=== PATIENT | female | born 1945 | race Caucasian/White ===

== ENCOUNTER 2017-12-23 15:46 | Inpatient (IN) | payer OTHER ==
--- NOTE | 2017-12-23 16:54 | PDOC ---
History of Present Illness <Katarzyna Haywood - Last Filed: 12/23/17 16:53> - General History Source: Patient, [facility] Exam Limitations: No Limitations - History of Present Illness Initial Comments: 12/23/17 18:10 The patient is a 72 year old female with past medical history of HTN, insomnia, Alzheimers disease, and HLD presents to the emergency department from [facility] s/ a fall earlier in the afternoon. The patient is a poor historian. The patient states she fell from he bed, when she rolled over. The patient denies loss of conscious or pain. The patients documents show the patient has an history of HTN, but the patient states she has a baseline of low blood pressure . The patients reports show, the patient was sent to the ED by Dr. Tam primarily for refusing to eat, 2nd hemorrhoid size of a fist and other conditions of generalized weakness and dizziness. Allergies: Penicillins Social history: None reported Surgical history: None reported PCP: Dr. Bee Tam <Telma Fernandes - Last Filed: 12/23/17 18:19> - General Chief Complaint: Weakness Stated Complaint: AMS Time Seen by Provider: 12/23/17 16:42 Past History - Past Medical History Cardiac Disorders: Yes (ashd) COPD: No HTN: Yes Hypercholesterolemia: Yes - Suicide/Smoking/Psychosocial Hx Smoking History: Unknown if ever smoked Have you smoked in the past 12 months: No Information on smoking cessation initiated: No Hx Alcohol Use: No Drug/Substance Use Hx: No Substance Use Type: None <Katarzyna Haywood - Last Filed: 12/23/17 16:53> <Telma Fernandes - Last Filed: 12/23/17 18:19> - Past Medical History Allergies/Adverse Reactions: Allergies Allergy/AdvReac Type Severity Reaction Status Date / Time Penicillins Allergy Verified 12/23/17 16:03 Review of Systems - Review of Systems Able to Perform ROS?: Yes Comments:: 12/23/17 18:11 GENERAL/CONSTITUTIONAL: No fever or chills. No weakness. HEAD, EYES, EARS, NOSE AND THROAT: No change in vision. No ear pain or discharge. No sore throat. CARDIOVASCULAR: No chest pain or shortness of breath. RESPIRATORY: No cough, wheezing, or hemoptysis. GASTROINTESTINAL: No nausea, vomiting, diarrhea or constipation. GENITOURINARY: No dysuria, frequency, or change in urination. MUSCULOSKELETAL: No joint or muscle swelling or pain. No neck or back pain. SKIN: No rash NEUROLOGIC: No headache, vertigo, loss of consciousness, or change in strength/ sensation. ENDOCRINE: No increased thirst. No abnormal weight change. HEMATOLOGIC/LYMPHATIC: No anemia, easy bleeding, or history of blood clots. ALLERGIC/IMMUNOLOGIC: No hives or skin allergy. <Telma Fernandes - Last Filed: 12/23/17 18:19> *Physical Exam - Vital Signs Last Vital Signs Temp Pulse Resp BP Pulse Ox 98.5 F 75 20 82/50 96 12/23/17 16:06 12/23/17 16:06 12/23/17 16:06 12/23/17 16:06 12/23/17 16:06 <Katarzyna Haywood - Last Filed: 12/23/17 16:53> - Vital Signs Last Vital Signs Temp Pulse Resp BP Pulse Ox 98.5 F 82 18 88/73 96 12/23/17 16:06 12/23/17 18:00 12/23/17 18:00 12/23/17 18:00 12/23/17 16:06 - Physical Exam Comments: 12/23/17 18:11 GENERAL: Awake, alert, and fully oriented, in no acute distress HEAD: No signs of trauma EYES: PERRLA, EOMI, sclera anicteric, conjunctiva clear ENT: Auricles normal inspection, hearing grossly normal, nares patent, oropharynx clear without exudates. Moist mucosa NECK: Normal ROM, supple, no lymphadenopathy, JVD, or masses LUNGS: Breath sounds equal, clear to auscultation bilaterally. No wheezes, and no crackles HEART: Regular rate and rhythm, normal S1 and S2, no murmurs, rubs or gallops ABDOMEN: Soft, nontender, normoactive bowel sounds. No guarding, no rebound. No masses RECTAL Exam: (+) hemorrhoid. EXTREMITIES: Normal range of motion, no edema. No clubbing or cyanosis. No cords, erythema, or tenderness NEUROLOGICAL: Cranial nerves II through XII grossly intact. Normal speech, normal gait SKIN: Warm, Dry, normal turgor, no rashes or lesions noted. 12/23/17 18:19 <Telma Fernandes - Last Filed: 12/23/17 18:19> ED Treatment Course - LABORATORY CBC & Chemistry Diagram: 12/23/17 17:33 12/23/17 17:33 <Telma Fernandes - Last Filed: 12/23/17 18:19> *DC/Admit/Observation/Transfer <Katarzyna Haywood - Last Filed: 12/23/17 16:53> - Attestations Scribe Attestion: 12/23/17 18:12 Documentation prepared by Telma Fernandes, acting as medical receptionist for Katarzyna Haywood MD. <Telma Fernandes - Last Filed: 12/23/17 18:19> - Referrals Referrals: Dhruv Tam [Primary Care Provider] - - Patient Instructions - Post Discharge Activity
[2017-12-23] MEDS ORDERED: SODIUM CHLORIDE 0.9% 500 ML INFUS.BAG IV ONE (18:03)
[2017-12-23 18:06] LABS: BASO % 0.6 % (0-2.0); EOS % 0.9 % (0-4.5); HEMATOCRIT 33.5 % (32.4-45.2); HEMOGLOBIN 10.8 GM/dL (10.7-15.3); LYMPH % 11.8 % (8-40); MCHC 32.3 g/dl (32.0-36.0); MEAN CELL VOLUME 83.6 fl (80-96); MEAN PLT VOLUME 9.5 fl (7.5-11.1); MONO % 5.2 % (3.8-10.2); NEUT % 81.5 % (42.8-82.8); PLATELET COUNT 209 K/MM3 (134-434); RBC 4.01 M/mm3 (3.60-5.2); RDW 20.3 % (11.6-15.6); WHITE BLOOD COUNT 5.6 K/mm3 (4.0-10.0)
[2017-12-23 18:28] LABS: INR 0.97 (0.82-1.09)
[2017-12-23 18:31] LABS: ACTIVATED PTT 28.2 SECONDS (25.2-36.5)
[2017-12-23 18:44] LABS: ANION GAP 7 (8-16); BLOOD UREA NITROGEN 39 mg/dL (7-18); CHLORIDE 106 mmol/L (98-107); CO2 34 mmol/L (21-32); GLUCOSE,RANDOM 128 mg/dL (74-106); SODIUM 147 mmol/L (136-145)
[2017-12-23 19:11] LABS: ALK PHOS 126 U/L (45-117); BILIRUBIN,TOTAL 0.2 mg/dL (0.2-1.0); CREATININE 1.2 mg/dL (0.55-1.02); SGPT/ALT 265 U/L (12-78); TOT PROT 4.2 g/dl (6.4-8.2)
--- NOTE | 2017-12-23 19:19 | PDOC ---
*Physical Exam - Vital Signs Last Vital Signs Temp Pulse Resp BP Pulse Ox 99.5 F 82 18 115/59 96 12/23/17 18:30 12/23/17 18:37 12/23/17 18:00 12/23/17 18:37 12/23/17 16:06 - Physical Exam Comments: GENERAL: Awake, alert, in no acute distress HEAD: No signs of trauma, normocephalic, atraumatic EYES: PERRLA, EOMI, sclera anicteric, conjunctiva clear ENT: Auricles normal inspection, hearing grossly normal, nares patent, oropharynx clear without exudates. Moist mucosa NECK: Normal ROM, supple, no lymphadenopathy, JVD, or masses LUNGS: No distress, speaks full sentences, clear to auscultation bilaterally HEART: Regular rate and rhythm, normal S1 and S2, no murmurs, rubs or gallops, peripheral pulses normal and equal bilaterally. EXTREMITIES: Normal inspection, Normal range of motion, no edema. No clubbing or cyanosis. NEUROLOGICAL: Cranial nerves II through XII grossly intact. Normal speech, normal gait, no focal sensorimotor deficits SKIN: Warm, Dry, normal turgor, no rashes or lesions noted. ED Treatment Course - LABORATORY CBC & Chemistry Diagram: 12/23/17 17:33 12/23/17 17:33 - ADDITIONAL ORDERS Additional order review: Laboratory Results 12/23/17 12/23/17 17:33 17:33 PT with INR 11.00 INR 0.97 PTT (Actin FS) 28.2 Lactic Acid 2.5 H* 12/23/17 17:33 RBC 4.01 MCV 83.6 MCHC 32.3 RDW 20.3 H MPV 9.5 Neutrophils % 81.5 Lymphocytes % 11.8 Monocytes % 5.2 Eosinophils % 0.9 Basophils % 0.6 - Medications Given in the ED: ED Medications Discontinued Medications Generic Name Dose Route Start Last Admin Trade Name Freq PRN Reason Stop Dose Admin Sodium Chloride 1,000 ml 12/23/17 18:03 12/23/17 18:20 Normal Saline - IV 12/23/17 18:04 1,000 ml ONCE ONE Administration Medical Decision Making - Medical Decision Making 12/23/17 20:[address] Haywood. Patient is a 72 year old female with past medical history of HTN, insomnia, Alzheimers disease, and HLD presents to the emergency department from [facility] s/p a fall. EKG shows prolonged QTc, no signs of ischemia. Labs pending. 12/23/17 20:27 Laboratory Tests 12/23/17 12/23/17 17:33 17:33 Sodium 147 H Potassium 3.0 L BUN 39 H Creatinine 1.2 H Lactic Acid 2.5 H* Calcium 6.7 L* AST 512 H ALT 265 H Creatine Kinase 7230 H Troponin I 0.37 H Total Protein 4.2 L Albumin 0.9 L CMP shows hypokalemia, elevated BUN/Cr, lactic acid 2.5. Liver enzymes elevated. CK elevated to 7k, troponin elevated to 0.37. Patient reassessed, complains of no chest pain or shortness of breath. 1L fluid started, CXR and UA ordered. Aspirin given. Dr Isaias ugalde from cardiology. Discussed patient, agrees with plan. *DC/Admit/Observation/Transfer Diagnosis at time of Disposition: Troponin I above reference range - Discharge Dispostion Condition at time of disposition: Stable Decision to Admit order: Yes - Referrals - Patient Instructions - Post Discharge Activity
[2017-12-23 19:43] LABS: ALBUMIN 0.9 g/dl (3.4-5.0); SGOT/AST 512 U/L (15-37)
[2017-12-23 19:44] LABS: CALCIUM 6.7 mg/dL (8.5-10.1)
[2017-12-23] MEDS ORDERED: SODIUM CHLORIDE 1,000 ML IV STA (19:53)
[2017-12-23] MEDS ORDERED: ASPIRIN 81 MG CHEWABLE TABLETS PO ONE (20:21)
[2017-12-23] MEDS ORDERED: ASPIRIN 81 MG CHEWABLE TABLETS ONE (20:44)
--- NOTE | 2017-12-23 22:39 | PN ---
Teaching Attending Note Name of Resident: Srinivas Salamanca ATTENDING PHYSICIAN STATEMENT I saw and evaluated the patient. I reviewed the resident's note and discussed the case with the resident. I agree with the resident's findings and plan as documented. SUBJECTIVE: Patient is a 72 year old woman from [facility] with past medical history of HTN , insomnia, Alzheimers disease, and HLD who presents to the ER after a fall earlier in the afternoon. The patient is a poor historian. The patient states she fell from he bed, when she rolled over. The patient denies loss of conscious or pain. The patients documents show the patient has HTN, but the she states that she has a baseline of low blood pressure. The patients reports show, the patient was sent to the ED by Dr. Tam primarily for refusing to eat, 2nd hemorrhoid size of a fist and other conditions of generalized weakness and dizziness. OBJECTIVE: Alert and in no acute distress. Vital Signs Period Temp Pulse Resp BP Sys/Chatterjee Pulse Ox Last 24 Hr 98.5 F-99.5 F 75-82 18-20 82-115/50-73 96 HEENT: No Jaundice, eye redness or discharge, PERRLA, EOMI. Normocephalic, atraumatic. External ears are normal and hearing is grossly intact. No nasal discharge. Neck: Supple, nontender. No palpable adenopathy or thyromegaly. No JVD Chest: Good effort. Clear to auscultation and percussion. Heart: Regular. No S3, rub or murmur Abdomen: Not distended, soft, nontender and no HSM. No rebound or guarding. Normoactive bowel sounds. Ext: No obvious superficial physical sequelae of fall. Peripheral pulses intact. No leg edema. Skin: Warm and dry. No petechiae, rash or ecchymosis. Neuro: Alert. Oriented to person and place. CN 2-12 grossly intact. Sensation grossly intact in all four extremities and DTR are symmetric. Home Medications Medication Instructions Recorded Amlodipine Besylate [Norvasc -] 5 mg PO DAILY 12/23/17 Aspirin 81 mg PO DAILY 12/23/17 Atorvastatin Ca [Lipitor] 80 mg PO HS 12/23/17 Docusate Sodium [Colace] 100 mg PO HS 12/23/17 Levofloxacin [Levaquin] 500 mg PO DAILY 12/23/17 Lisinopril [Prinivil] 20 mg PO BID 12/23/17 Melatonin/Pyridoxine HCl (B6) 3 each PO HS 12/23/17 [Melatonin 3 mg Tablet] Memantine HCl [Namenda -] 5 mg PO DAILY 12/23/17 hydrALAZINE HCL [Apresoline -] 25 mg PO TID 12/23/17 Abnormal Lab Results 12/23/17 12/23/17 12/23/17 17:33 17:33 17:33 RDW 20.3 H Sodium 147 H Potassium 3.0 L Carbon Dioxide 34 H Anion Gap 7 L BUN 39 H Creatinine 1.2 H Random Glucose 128 H Lactic Acid 2.5 H* Calcium 6.7 L* AST 512 H ALT 265 H Alkaline Phosphatase 126 H Creatine Kinase 7230 H CK-MB (CK-2) 51.69 H Troponin I 0.37 H Total Protein 4.2 L Albumin 0.9 L ASSESSMENT AND PLAN: 1. Rhabdomyolysis after Fall - Head CT does not show any acute pathology and her EKG shows no significant abnormality. She does not recall how long she was on the floor after the fall. Curiously does not have any muscle or limb tenderness. Low calcium, lactic acidosis and low albumin all as well as MOSHE all likely due to rhabdomyolysis. Got 2 liters of NS in the ER. Will continue gentle IV fluids and monitor kidney function and CPK as wel as lactic acid level. There is no evidence of infection. Will check, Mg, phosphate, repeat albumin level and treat with KCL IV and PO. Will hold lipitor and lisinopril. 2. Elevated troponin - .Likely due to demand ischemia, but will onitor her on telemetry and rule out ACS. Her EKG shows no significant abnormality. Cardiology consult. 3. DVT prophylaxis - Heparin 5000u sq tid. 4. Advance directives - Full code
[2017-12-23 22:45] LABS: URINE APPEARANCE SLCLOUDY; URINE BILIRUBIN NEGATIVE (<2.0 mg/dL); URINE COLOR AMBER; URINE GLUCOSE (UA) NEGATIVE (NEGATIVE); URINE KETONE NEGATIVE (NEGATIVE); URINE LEUK ESTERASE TRACE (NEGATIVE); URINE NITRITE NEGATIVE (NEGATIVE); URINE UROBILINOGEN 4.0 E.U/dl mg/dL (0.2-1.0)
[2017-12-23 22:59] LABS: URINE PROTEIN 3+ (NEGATIVE)
[2017-12-23 23:04] LABS: EPI CELLS RARE /HPF (FEW); URINE BACTERIA RARE /hpf (NONE SEEN); URINE HYALINE CAST 1 /lpf; URINE MUCUS RARE
[2017-12-24] MEDS: SODIUM CHLORIDE 1,000 ML IV SCH ×2 (01:01→23:25)
[2017-12-24] MEDS ORDERED: POTASSIUM CHLORIDE TABS 20 MEQ TABLET.ER (FP) PO ONE ×2 (03:54→04:10)
[2017-12-24] MEDS: KCL 10 MEQ IVPB 10 MEQ/100 ML INFUS.BAG IVPB SCH ×3 (04:05→06:30)
[2017-12-24] MEDS ORDERED: KCL 10 MEQ IVPB 20 MEQ/200 ML INFUS.BAG IVPB ONE (04:11)
--- NOTE | 2017-12-24 04:23 | HP ---
CHIEF COMPLAINT: s/p fall PCP: Dr. Tam HISTORY OF PRESENT ILLNESS: The patient is a poor historian. the following history was obtained from the medical record. The patient is a 72 yo f w/ PMH Alzheimer's dementia, HLD, HTN who comes into the ED s/p fall earlier today. The patient has difficulty remembering the circumstances around the fall or how long she was on the floor for. The patient denies LOC, head trauma, palpitations, chest pain, SOB, dizziness or pain. Per Dr. Tam, the patient has also been "refusing to eat" and has a "hemorrhoid the size of a fist." ER course was notable for: (1) sodium 147, potassium 3.0, BUN 39, Cr 1.2 (2) lactic acid 2.5, troponin .37 (3) AST 512, alt 265, alp 126, CL 7250 (4) Dr. Esparza consulted from ED for troponemia; likley demand. recommended ASA and hydration. PAST MEDICAL HISTORY: HTN, Alzheimer's, HLD PAST SURGICAL HISTORY: none Social History: Smoking: denies Alcohol: denies Drugs: denies Allergies Penicillins Allergy (Verified 12/23/17 16:03) HOME MEDICATIONS: Home Medications Medication Instructions Recorded Amlodipine Besylate [Norvasc -] 5 mg PO DAILY 12/23/17 Aspirin 81 mg PO DAILY 12/23/17 Atorvastatin Ca [Lipitor] 80 mg PO HS 12/23/17 Docusate Sodium [Colace] 100 mg PO HS 12/23/17 Levofloxacin [Levaquin] 500 mg PO DAILY 12/23/17 Lisinopril [Prinivil] 20 mg PO BID 12/23/17 Melatonin/Pyridoxine HCl (B6) 3 each PO HS 12/23/17 [Melatonin 3 mg Tablet] Memantine HCl [Namenda -] 5 mg PO DAILY 12/23/17 hydrALAZINE HCL [Apresoline -] 25 mg PO TID 12/23/17 REVIEW OF SYSTEMS CONSTITUTIONAL: Absent: fever, chills, diaphoresis, generalized weakness, malaise, loss of appetite, weight change HEENT: Absent: rhinorrhea, nasal congestion, throat pain, throat swelling, difficulty swallowing, mouth swelling, ear pain, eye pain, visual changes CARDIOVASCULAR: Absent: chest pain, syncope, palpitations, irregular heart rate, lightheadedness , peripheral edema RESPIRATORY: Absent: cough, shortness of breath, dyspnea with exertion, orthopnea, wheezing, stridor, hemoptysis GASTROINTESTINAL: Absent: abdominal pain, abdominal distension, nausea, vomiting, diarrhea, constipation, melena, hematochezia GENITOURINARY: Absent: dysuria, frequency, urgency, hesitancy, hematuria, flank pain, genital pain MUSCULOSKELETAL: Absent: myalgia, arthralgia, joint swelling, back pain, neck pain SKIN: Absent: rash, itching, pallor HEMATOLOGIC/IMMUNOLOGIC: Absent: easy bleeding, easy bruising, lymphadenopathy, frequent infections ENDOCRINE: Absent: unexplained weight gain, unexplained weight loss, heat intolerance, cold intolerance NEUROLOGIC: Absent: headache, focal weakness or paresthesias, dizziness, unsteady gait, seizure, mental status changes, bladder or bowel incontinence PSYCHIATRIC: Absent: anxiety, depression, suicidal or homicidal ideation, hallucinations. PHYSICAL EXAMINATION Vital Signs - 24 hr 12/23/17 12/23/17 12/23/17 16:06 18:00 18:30 Temperature 98.5 F 99.5 F Pulse Rate 75 Pulse Rate [ 82 Left] Respiratory 20 18 Rate Blood Pressure 82/50 Blood Pressure 88/73 [Left Arm] O2 Sat by Pulse 96 Oximetry (%) 12/23/17 18:37 Temperature Pulse Rate Pulse Rate [ 82 Left] Respiratory Rate Blood Pressure Blood Pressure 115/59 [Left Arm] O2 Sat by Pulse Oximetry (%) GENERAL: Awake, alert, oriented to self only, in no acute distress. HEAD: Normal with no signs of trauma. EYES: Pupils equal, round and reactive to light, extraocular movements intact, sclera anicteric, conjunctiva clear. No lid lag. EARS, NOSE, THROAT: oropharynx clear without exudates. Moist mucous membranes. NECK: Normal range of motion, supple without lymphadenopathy, JVD, or masses. LUNGS: Breath sounds equal, clear to auscultation bilaterally. No wheezes, and no crackles. No accessory muscle use. HEART: Regular rate and rhythm, normal S1 and S2 without murmur, rub or gallop. ABDOMEN: Soft, nontender, not distended, normoactive bowel sounds, no guarding, no rebound, no masses. No hepatomegaly or splenomegaly. MUSCULOSKELETAL: Normal range of motion at all joints. No bony deformities or tenderness. No CVA tenderness. UPPER EXTREMITIES: 2+ pulses, warm, well-perfused. No cyanosis. No clubbing. No peripheral edema. LOWER EXTREMITIES: 2+ pulses, warm, well-perfused. No calf tenderness. No peripheral edema. NEUROLOGICAL: Cranial nerves II-X intact. Normal speech. strength 5/5 in both upper extremities. 2/5 strength in both lower extremities SKIN: Warm, dry, normal turgor, no rashes or lesions noted, normal capillary refill. Rectal: small external hemorrhoid seen. No erythema or bleeding stigmata. Laboratory Results - last 24 hr 12/23/17 12/23/17 12/23/17 17:33 17:33 17:33 WBC 5.6 RBC 4.01 Hgb 10.8 Hct 33.5 MCV 83.6 MCH 27.0 MCHC 32.3 RDW 20.3 H Plt Count 209 MPV 9.5 Absolute Neuts (auto) 4.6 Neutrophils % 81.5 Lymphocytes % 11.8 Monocytes % 5.2 Eosinophils % 0.9 Basophils % 0.6 Nucleated RBC % 0 PT with INR INR PTT (Actin FS) Sodium 147 H Potassium 3.0 L Chloride 106 Carbon Dioxide 34 H Anion Gap 7 L BUN 39 H Creatinine 1.2 H Creat Clearance w eGFR 43.91 Random Glucose 128 H Lactic Acid 2.5 H* Calcium 6.7 L* Total Bilirubin 0.2 AST 512 H ALT 265 H Alkaline Phosphatase 126 H Creatine Kinase 7230 H Creatine Kinase Index 0.7 CK-MB (CK-2) 51.69 H Troponin I 0.37 H Total Protein 4.2 L Albumin 0.9 L Urine Color Urine Appearance Urine pH Ur Specific Loyal Urine Protein Urine Glucose (UA) Urine Ketones Urine Blood Urine Nitrite Urine Bilirubin Urine Urobilinogen Ur Leukocyte Esterase Urine WBC (Auto) Urine RBC (Auto) Ur Epithelial Cells Urine Bacteria Hyaline Casts Urine Mucus 12/23/17 12/23/17 12/23/17 17:33 22:20 22:40 WBC RBC Hgb Hct MCV MCH MCHC RDW Plt Count MPV Absolute Neuts (auto) Neutrophils % Lymphocytes % Monocytes % Eosinophils % Basophils % Nucleated RBC % PT with INR 11.00 INR 0.97 PTT (Actin FS) 28.2 Sodium Potassium Chloride Carbon Dioxide Anion Gap BUN Creatinine Creat Clearance w eGFR Random Glucose Lactic Acid 1.4 Calcium Total Bilirubin AST ALT Alkaline Phosphatase Creatine Kinase Creatine Kinase Index CK-MB (CK-2) Troponin I Total Protein Albumin Urine Color Jessica Urine Appearance Slcloudy Urine pH 6.0 Ur Specific Loyal 1.019 Urine Protein 3+ H Urine Glucose (UA) Negative Urine Ketones Negative Urine Blood 3+ H Urine Nitrite Negative Urine Bilirubin Negative Urine Urobilinogen 4.0 e.u/dl H Ur Leukocyte Esterase Trace Urine WBC (Auto) 39 Urine RBC (Auto) 3 Ur Epithelial Cells Rare Urine Bacteria Rare Hyaline Casts 1 Urine Mucus Rare ASSESSMENT/PLAN: The patient is a 72 yo f w/ PMH HTN, Alzheimer's, HLD who was sent to the ED from [facility] term s/p fall. Patient found to have rhabdomyolysis in the ED. #Rhabdomyolysis likely secondary to prolonged immobility after fall -NS @42 -rpt CPK in am -rpt lactic acid normalized -replete potassium IV and PO #troponemia -likely demand as per cardio -cardio consult in AM -Rpt EKG in AM -trend trop #MOSHE likely 2/2 rhabdo -creatinine 1.2, b/l unknown -trend Cr. -IVF -obtain UA #elevated LFTs and hypoalbuminemia likely 2/2 rhabdo -trend LFTs -rpt albumin #FEN -NS @ 42 -replete lytes as above and monitor -sodium controlled diet #prophy -heparin SQ 5k units TID #Dispo -admit tele Visit type - Emergency Visit Emergency Visit: Yes ED Registration Date: 12/23/17 Care time: The patient presented to the Emergency Department on the above date and was hospitalized for further evaluation of their emergent condition. - New Patient This patient is new to me today: Yes Date on this admission: 12/24/17 - Critical Care Critical Care patient: No Hospitalist Screening - Colonoscopy Questionnaire Colonoscopy Questionnaire: Colonoscopy Questionnaire - Patient: 50 - 75 years old and never had a screening colonoscopy: Unknown History of colon or rectal polyps, or CA: Unknown History of IBD, Crohn's disease or UC: Unknown History of abdominal radiation therapy as a child: Unknown - Relative: 1 with colon or rectal CA, or polyps at age 60 or younger: Unknown Colon or rectal CA diagnosed at age 45 or younger: Unknown Multiple relatives with colon or rectal CA: Unknown - Outcome: Screening Result: Negative Screen
[2017-12-24] MEDS: hydrALAZINE HCL 25 MG TABLET (FP) PO SCH ×3 (06:30→22:35)
[2017-12-24] MEDS ORDERED: hydrALAZINE HCL 25 MG TABLET (FP) ONE (06:37)
[2017-12-24] MEDS ORDERED: HEPARIN NA (PORCINE) 5,000 UNITS/ML 1ML VIAL ONE (06:38)
[2017-12-24] MEDS ORDERED: KCL 10 MEQ IVPB 10 MEQ/100 ML INFUS.BAG IVPB ONE (06:48)
[2017-12-24] MEDS: HEPARIN NA (PORCINE) 5,000 UNITS/ML 1ML VIAL SQ SCH ×3 (06:50→22:35)
[2017-12-24 07:20] LABS: BASO % 0.5 % (0-2.0); EOS % 0.9 % (0-4.5); HEMATOCRIT 32.3 % (32.4-45.2); HEMOGLOBIN 10.7 GM/dL (10.7-15.3); LYMPH % 14.4 % (8-40); MCH 27.7 pg (25.7-33.7); MCHC 33.1 g/dl (32.0-36.0); MEAN CELL VOLUME 83.8 fl (80-96); MEAN PLT VOLUME 9.3 fl (7.5-11.1); MONO % 5.1 % (3.8-10.2); NEUT % 79.1 % (42.8-82.8); PLATELET COUNT 176 K/MM3 (134-434); RBC 3.86 M/mm3 (3.60-5.2); RDW 20.2 % (11.6-15.6); WHITE BLOOD COUNT 6.8 K/mm3 (4.0-10.0)
--- NOTE | 2017-12-24 08:52 | EKG ---
Test Reason : Blood Pressure : / mmHG Vent. Rate : 078 BPM Atrial Rate : 078 BPM P-R Int : 158 ms QRS Dur : 066 ms QT Int : 442 ms P-R-T Axes : 042 -09 -07 degrees QTc Int : 503 ms SINUS RHYTHM WITH PREMATURE ATRIAL COMPLEXES PROLONGED QT NONSPECIFIC ST ABNORMALITY NO PREVIOUS ECGS AVAILABLE Confirmed by TEOFILO CHRISTINE MD ([id number]) on 12/24/2017 8:52:03 AM Referred By: Confirmed By:TEOFILO CHRISTINE MD
[2017-12-24] MEDS: MEMANTINE HCL 5 MG TABLET (UD) PO SCH (09:52)
[2017-12-24] MEDS: amLODIPine BESYLATE 5 MG TABLET (FP) PO SCH (09:52)
[2017-12-24] MEDS ORDERED: amLODIPine BESYLATE 5 MG TABLET (FP) ONE (09:53)
[2017-12-24] MEDS ORDERED: PT OWN MED DRAWER 7, Y5N ONE ×2 (09:54→12:22)
--- NOTE | 2017-12-24 11:26 | PN ---
Progress Note (short form) - Note Progress Note: patient admitted for s/p fall Problem List - Problems (1) Troponin I above reference range Assessment/Plan: trend troponins likely due to increase demand cardiology aspirin ivf Code(s): R74.8 - ABNORMAL LEVELS OF OTHER SERUM ENZYMES (2) Rhabdomyolysis Assessment/Plan: ivf trend CPK lactic now trending down Code(s): M62.82 - RHABDOMYOLYSIS (3) Hypokalemia Assessment/Plan: repleted awaiting new potassium check magnesium Code(s): E87.6 - HYPOKALEMIA (4) Dementia Assessment/Plan: namenda Code(s): F03.90 - UNSPECIFIED DEMENTIA WITHOUT BEHAVIORAL DISTURBANCE
--- NOTE | 2017-12-24 11:31 | PN ---
Progress Note, Physician Chief Complaint: patient admitted s/p fall - Current Medication List Current Medications: Active Medications Amlodipine Besylate (Norvasc -) 5 mg PO DAILY [facility] Last Admin: 12/24/17 09:52 Dose: 5 mg Aspirin (Asa -) 81 mg PO DAILY [facility] Docusate Sodium (Colace -) 100 mg PO HS [facility] Heparin Sodium (Porcine) (Heparin -) 5,000 unit SQ TID [facility] Last Admin: 12/24/17 06:50 Dose: 5,000 unit Hydralazine HCl (Apresoline -) 25 mg PO TID [facility] Last Admin: 12/24/17 06:30 Dose: 25 mg Sodium Chloride (Normal Saline -) 1,000 mls @ 42 mls/hr IV ASDIR [facility] Last Admin: 12/24/17 01:01 Dose: 42 mls/hr Memantine (Namenda -) 5 mg PO DAILY [facility] Last Admin: 12/24/17 09:52 Dose: 5 mg - Objective Vital Signs: Vital Signs Temperature 98 F 12/24/17 10:00 Pulse Rate 82 12/24/17 10:00 Respiratory Rate 20 12/24/17 11:00 Blood Pressure 126/66 12/24/17 10:00 O2 Sat by Pulse Oximetry (%) 97 12/24/17 11:00 Constitutional: Yes: Calm, Thin Neck: Yes: Trachea Midline Cardiovascular: Yes: Regular Rate and Rhythm, S1, S2 Respiratory: Yes: CTA Bilaterally Gastrointestinal: Yes: Normal Bowel Sounds, Soft Edema: No Neurological: Yes: Alert, Oriented Labs: CBC, BMP 12/24/17 06:20 INR, PTT INR 0.97 (0.82-1.09) 12/23/17 17:33 Problem List - Problems (1) Status post fall Assessment/Plan: carotid dopppler PT eval cardiology neurology neuro check Code(s): Z91.81 - HISTORY OF FALLING (2) Troponin I above reference range Assessment/Plan: trend troponins likely due to increase demand cardiology aspirin ivf Code(s): R74.8 - ABNORMAL LEVELS OF OTHER SERUM ENZYMES (3) Rhabdomyolysis Assessment/Plan: ivf trend CPK lactic now trending down Code(s): M62.82 - RHABDOMYOLYSIS (4) Hypokalemia Assessment/Plan: repleted awaiting new potassium check magnesium Code(s): E87.6 - HYPOKALEMIA (5) Dementia Assessment/Plan: namenda Code(s): F03.90 - UNSPECIFIED DEMENTIA WITHOUT BEHAVIORAL DISTURBANCE
[2017-12-24 11:41] LABS: ANION GAP 9 (8-16); BLOOD UREA NITROGEN 40 mg/dL (7-18); CHLORIDE 114 mmol/L (98-107); CO2 27 mmol/L (21-32); CREATININE 1.3 mg/dL (0.55-1.02); GLUCOSE,RANDOM 73 mg/dL (74-106); POTASSIUM 3.9 mmol/L (3.5-5.1); SGPT/ALT 286 U/L (12-78); SODIUM 150 mmol/L (136-145)
--- NOTE | 2017-12-24 11:50 | CON.CARD ---
Cardiology Consult (text) - Consultation Consultation Note: cc: fall hpi: 72 f hx htn, dementia, [place]. Pt does not recall events , does not think she had prodrome sxs or loc. Feels well now. No cp, sob, palps, dizzy, pnd, orthopnea, le edema. pmh: per hpi psh: nc fam: no premature cad social: no tob ros: per hpi; no nvd, cough, fever, vargas, abd pain, muscle pain, gib hematuria, dysuria meds: Ambulatory Orders Amlodipine Besylate [Norvasc -] 5 mg PO DAILY 12/23/17 Aspirin 81 mg PO DAILY 12/23/17 Atorvastatin Ca [Lipitor] 80 mg PO HS 12/23/17 Docusate Sodium [Colace] 100 mg PO HS 12/23/17 Levofloxacin [Levaquin] 500 mg PO DAILY 12/23/17 Lisinopril [Prinivil] 20 mg PO BID 12/23/17 Melatonin/Pyridoxine HCl (B6) [Melatonin 3 mg Tablet] 3 each PO HS 12/23/17 Memantine HCl [Namenda -] 5 mg PO DAILY 12/23/17 hydrALAZINE HCL [Apresoline -] 25 mg PO TID 12/23/17 pe: Vital Signs Period Temp Pulse Resp BP Sys/Chatterjee Pulse Ox Last 24 Hr 98 F-99.5 F 75-82 18-22 82-139/50-76 96-97 nad no jvd rrr s1s2 no mrg no le e/c/c abd nt nd pos bs cta bl nl eff awake alert appropriate no jaundice diaphoresis pos dp pt no carotid bruits Laboratory Last Values WBC 6.8 K/mm3 (4.0-10.0) 12/24/17 06:20 RBC 3.86 M/mm3 (3.60-5.2) 12/24/17 06:20 Hgb 10.7 GM/dL (10.7-15.3) 12/24/17 06:20 Hct 32.3 % (32.4-45.2) L 12/24/17 06:20 MCV 83.8 fl (80-96) 12/24/17 06:20 MCH 27.7 pg (25.7-33.7) 12/24/17 06:20 MCHC 33.1 g/dl (32.0-36.0) 12/24/17 06:20 RDW 20.2 % (11.6-15.6) H 12/24/17 06:20 Plt Count 176 K/MM3 (134-434) 12/24/17 06:20 MPV 9.3 fl (7.5-11.1) 12/24/17 06:20 Absolute Neuts (auto) 5.4 # 12/24/17 06:20 Neutrophils % 79.1 % (42.8-82.8) 12/24/17 06:20 Lymphocytes % 14.4 % (8-40) D 12/24/17 06:20 Monocytes % 5.1 % (3.8-10.2) 12/24/17 06:20 Eosinophils % 0.9 % (0-4.5) 12/24/17 06:20 Basophils % 0.5 % (0-2.0) 12/24/17 06:20 Nucleated RBC % 0 % (0-0) 12/24/17 06:20 PT with INR 11.00 SEC (9.7-13.0) 12/23/17 17:33 INR 0.97 (0.82-1.09) 12/23/17 17:33 PTT (Actin FS) 28.2 SECONDS (25.2-36.5) 12/23/17 17:33 Sodium 147 mmol/L (136-145) H 12/23/17 17:33 Potassium 3.0 mmol/L (3.5-5.1) L 12/23/17 17:33 Chloride 106 mmol/L (98-107) 12/23/17 17:33 Carbon Dioxide 34 mmol/L (21-32) H 12/23/17 17:33 Anion Gap 7 (8-16) L 12/23/17 17:33 BUN 39 mg/dL (7-18) H 12/23/17 17:33 Creatinine 1.2 mg/dL (0.55-1.02) H 12/23/17 17:33 Creat Clearance w eGFR 43.91 (>60) 12/23/17 17:33 Random Glucose 128 mg/dL (74-106) H 12/23/17 17:33 Lactic Acid 1.4 mmol/L (0.0-2.0) 12/23/17 22:40 Calcium 6.7 mg/dL (8.5-10.1) L* 12/23/17 17:33 Total Bilirubin 0.2 mg/dL (0.2-1.0) 12/23/17 17:33 AST 512 U/L (15-37) H 12/23/17 17:33 ALT 265 U/L (12-78) H 12/23/17 17:33 Alkaline Phosphatase 126 U/L (45-117) H 12/23/17 17:33 Creatine Kinase 7230 IU/L (26-192) H 12/23/17 17:33 Creatine Kinase Index 0.7 % (0.0-5.0) 12/23/17 17:33 CK-MB (CK-2) 51.69 ng/mL (0.5-3.6) H 12/23/17 17:33 Troponin I 0.37 ng/ml (0.00-0.05) H 12/23/17 17:33 Total Protein 4.2 g/dl (6.4-8.2) L 12/23/17 17:33 Albumin 0.9 g/dl (3.4-5.0) L 12/23/17 17:33 Urine Color Jessica 12/23/17 22:20 Urine Appearance Slcloudy 12/23/17 22:20 Urine pH 6.0 (5.0-8.0) 12/23/17 22:20 Ur Specific Debary 1.019 (1.001-1.035) 12/23/17 22:20 Urine Protein 3+ (NEGATIVE) H 12/23/17 22:20 Urine Glucose (UA) Negative (NEGATIVE) 12/23/17 22:20 Urine Ketones Negative (NEGATIVE) 12/23/17 22:20 Urine Blood 3+ (NEGATIVE) H 12/23/17 22:20 Urine Nitrite Negative (NEGATIVE) 12/23/17 22:20 Urine Bilirubin Negative (<2.0 mg/dL) 12/23/17 22:20 Urine Urobilinogen 4.0 e.u/dl mg/dL (0.2-1.0) H 12/23/17 22:20 Ur Leukocyte Esterase Trace (NEGATIVE) 12/23/17 22:20 Urine WBC (Auto) 39 /hpf (3-5) 12/23/17 22:20 Urine RBC (Auto) 3 /hpf (0-3) 12/23/17 22:20 Ur Epithelial Cells Rare /HPF (FEW) 12/23/17 22:20 Urine Bacteria Rare /hpf (NONE SEEN) 12/23/17 22:20 Hyaline Casts 1 /lpf 12/23/17 22:20 Urine Mucus Rare 12/23/17 22:20 ecg: sr, pac, nl intervals, no ischemic changes cxr: no chf a/p: 72 f hx htn, dementia, [place] fall: -details unclear -no signs acs or chf -check echo, monitor tele rhabdo: -cont ivfs pos trops: - borderline trop elevation in the setting of very high ck from rhabdo. CKMB index is low. No signs acs, trop elevation from rhabdo likely. Trend trops, check echo. htn: -stable, resume home meds hld: -cont statin
[2017-12-24 11:54] LABS: ALK PHOS 137 U/L (45-117); BILIRUBIN,TOTAL 0.3 mg/dL (0.2-1.0); PHOSPHOROUS 2.5 mg/dL (2.5-4.9); TOT PROT 4.3 g/dl (6.4-8.2)
[2017-12-24 11:55] LABS: SGOT/AST 580 U/L (15-37)
[2017-12-24 11:56] LABS: CALCIUM 6.7 mg/dL (8.5-10.1)
[2017-12-24 19:53] VITALS: BMI 24.8
[2017-12-24] MEDS: DOCUSATE SODIUM 100 MG CAPSULE (FP) PO SCH (22:35)
[2017-12-25] MEDS: hydrALAZINE HCL 25 MG TABLET (FP) PO SCH ×3 (06:12→21:25)
[2017-12-25] MEDS: HEPARIN NA (PORCINE) 5,000 UNITS/ML 1ML VIAL SQ SCH ×3 (06:13→21:25)
[2017-12-25 07:48] LABS: BASO % 0.4 % (0-2.0); EOS % 0.5 % (0-4.5); HEMOGLOBIN 10.8 GM/dL (10.7-15.3); LYMPH % 11.6 % (8-40); MCH 27.5 pg (25.7-33.7); MCHC 32.8 g/dl (32.0-36.0); MEAN CELL VOLUME 83.6 fl (80-96); MEAN PLT VOLUME 9.8 fl (7.5-11.1); MONO % 3.6 % (3.8-10.2); NEUT % 83.9 % (42.8-82.8); PLATELET COUNT 187 K/MM3 (134-434); RBC 3.95 M/mm3 (3.60-5.2); RDW 20.2 % (11.6-15.6); WHITE BLOOD COUNT 8.1 K/mm3 (4.0-10.0)
[2017-12-25 08:12] LABS: CHLORIDE 112 mmol/L (98-107); POTASSIUM 3.9 mmol/L (3.5-5.1); SODIUM 146 mmol/L (136-145)
[2017-12-25 08:25] LABS: ALK PHOS 120 U/L (45-117); ANION GAP 8 (8-16); BILIRUBIN,TOTAL 0.3 mg/dL (0.2-1.0); BLOOD UREA NITROGEN 42 mg/dL (7-18); CO2 26 mmol/L (21-32); CREATININE 1.4 mg/dL (0.55-1.02); MAGNESIUM 1.9 mg/dL (1.8-2.4); SGPT/ALT 335 U/L (12-78); TOT PROT 4.3 g/dl (6.4-8.2)
[2017-12-25 10:15] LABS: ALBUMIN 0.9 g/dl (3.4-5.0); SGOT/AST 700 U/L (15-37)
[2017-12-25 10:16] LABS: CALCIUM 6.4 mg/dL (8.5-10.1); GLUCOSE,RANDOM 49 mg/dL (74-106)
--- NOTE | 2017-12-25 10:20 | PN ---
Progress Note (short form) - Note Progress Note: s: no cp sob palps dizzy o: Vital Signs Period Temp Pulse Resp BP Sys/Chatterjee Pulse Ox Last 24 Hr 97.9 F-98.5 F 81-87 16-20 106-153/63-99 96-97 nad no jvd rrr s1s2 no mrg no le e/c/c abd nt nd pos bs cta bl nl eff awake alert appropriate no jaundice diaphoresis Current Medications Generic Name Dose Route Start Last Admin Trade Name Dionne PRN Reason Stop Dose Admin Amlodipine Besylate 5 mg 12/24/17 10:00 12/24/17 09:52 Norvasc - PO 5 mg DAILY [facility] Administration Aspirin 81 mg 12/25/17 10:00 Asa - PO DAILY [facility] Docusate Sodium 100 mg 12/24/17 22:00 12/24/17 22:35 Colace - PO 100 mg HS [facility] Administration Heparin Sodium (Porcine) 5,000 unit 12/24/17 06:00 12/25/17 06:13 Heparin - SQ 5,000 unit TID [facility] Administration Hydralazine HCl 25 mg 12/24/17 06:00 12/25/17 06:12 Apresoline - PO 25 mg TID [facility] Administration Sodium Chloride 1,000 mls @ 42 mls/hr 12/23/17 23:45 12/24/17 23:25 Normal Saline - IV Not Given ASDIR [facility] Memantine 5 mg 12/24/17 10:00 12/24/17 09:52 Namenda - PO 5 mg DAILY [facility] Administration CBC, BMP 12/25/17 05:15 12/25/17 05:15 ecg: sr, pac, nl intervals, no ischemic changes cxr: no chf tele: sr echo 12/2017: nl lv/rv, mild lae, mild mr, mild-mod tr, mild pr, rvsp 30-40 a/p: 72 f hx htn, dementia, [place]. fall: -details unclear -no signs acs or chf -echo unremarkable, tele benign rhabdo: -cont ivfs pos trops: - borderline trop elevation in the setting of very high ck from rhabdo. CKMB index is low. No signs acs, trop elevation likely from rhabdo. htn: -stable, resume home meds hld: -cont statin can dc tele
[2017-12-25] MEDS: amLODIPine BESYLATE 5 MG TABLET (FP) PO SCH (10:29)
[2017-12-25] MEDS: MEMANTINE HCL 5 MG TABLET (UD) PO SCH (10:29)
[2017-12-25] MEDS: ASPIRIN 81 MG CHEWABLE TABLETS PO SCH (10:29)
--- NOTE | 2017-12-25 11:43 | PN ---
Progress Note, Physician - Current Medication List Current Medications: Active Medications Amlodipine Besylate (Norvasc -) 5 mg PO DAILY [facility] Last Admin: 12/25/17 10:29 Dose: 5 mg Aspirin (Asa -) 81 mg PO DAILY [facility] Last Admin: 12/25/17 10:29 Dose: 81 mg Docusate Sodium (Colace -) 100 mg PO HS [facility] Last Admin: 12/24/17 22:35 Dose: 100 mg Heparin Sodium (Porcine) (Heparin -) 5,000 unit SQ TID [facility] Last Admin: 12/25/17 06:13 Dose: 5,000 unit Hydralazine HCl (Apresoline -) 25 mg PO TID [facility] Last Admin: 12/25/17 06:12 Dose: 25 mg Sodium Chloride (Normal Saline -) 1,000 mls @ 42 mls/hr IV [facility]IR [facility] Last Admin: 12/24/17 23:25 Dose: Not Given Potassium Chloride/Dextrose/Sod Cl (D5-1/2ns+20 Meq Kcl -) 20 meq in 1,000 mls @ 100 mls/hr IV ASDIR [facility] Memantine (Namenda -) 5 mg PO DAILY [facility] Last Admin: 12/25/17 10:29 Dose: 5 mg - Objective Vital Signs: Vital Signs Temperature 98.2 F 12/25/17 09:00 Pulse Rate 82 12/25/17 09:00 Respiratory Rate 16 12/25/17 09:00 Blood Pressure 122/62 12/25/17 09:00 O2 Sat by Pulse Oximetry (%) 96 12/24/17 21:00 Labs: CBC, BMP 12/25/17 05:15 12/25/17 05:15 INR, PTT INR 0.97 (0.82-1.09) 12/23/17 17:33 Problem List - Problems (1) Hypoglycemia Assessment/Plan: -Change ivf to d5 -endo Code(s): E16.2 - HYPOGLYCEMIA, UNSPECIFIED (2) Dementia Assessment/Plan: namenda Code(s): F03.90 - UNSPECIFIED DEMENTIA WITHOUT BEHAVIORAL DISTURBANCE (3) Rhabdomyolysis Assessment/Plan: ivf trend CPK lactic now trending down Code(s): M62.82 - RHABDOMYOLYSIS (4) Status post fall Assessment/Plan: carotid dopppler PT eval cardiology neurology neuro check Code(s): Z91.81 - HISTORY OF FALLING (5) Troponin I above reference range Assessment/Plan: trend troponins likely due to increase demand--mild elevation cardiology noted- aspirin ivf Code(s): R74.8 - ABNORMAL LEVELS OF OTHER SERUM ENZYMES (6) Abnormal LFTs Assessment/Plan: -US -GI Code(s): R94.5 - ABNORMAL RESULTS OF LIVER FUNCTION STUDIES
[2017-12-25] MEDS: D5-1/2NS+20 MEQ KCL - 20 MEQ/1,000 ML INFUS.BAG IV SCH (12:07)
--- NOTE | 2017-12-25 12:11 | CONSULT ---
Consult - text type - Consultation Consultation Note: Neurology CHIEF COMPLAINT: s/p fall HISTORY OF PRESENT ILLNESS: 72 yo f w/ PMH Alzheimer's dementia, HLD, HTN who comes into the hosptial s/p fall. The patient has difficulty remembering the circumstances around the fall or how long she was on the floor for. During my evaluation, she did know she was in the hosptial and could tell me the name. She denied having LOC and CT head was completed and did not show acute changes. Labs showed sodium 147, potassium 3.0, BUN 39, Cr 1.2, lactic acid 2.5, troponin .37 (being managed by cardiology). She remains awake, alert, though poor historian. Appears to be at baseline as she has h/o Alzheimer's Dementia and is on Namenda 5mg. PAST MEDICAL HISTORY: HTN, Alzheimer's, HLD PAST SURGICAL HISTORY: none Social History: Smoking: denies Alcohol: denies Drugs: denies Allergies Penicillins Allergy (Verified 12/23/17 16:03) HOME MEDICATIONS: Home Medications Medication Instructions Recorded Amlodipine Besylate [Norvasc -] 5 mg PO DAILY 12/23/17 Aspirin 81 mg PO DAILY 12/23/17 Atorvastatin Ca [Lipitor] 80 mg PO HS 12/23/17 Docusate Sodium [Colace] 100 mg PO HS 12/23/17 Levofloxacin [Levaquin] 500 mg PO DAILY 12/23/17 Lisinopril [Prinivil] 20 mg PO BID 12/23/17 Melatonin/Pyridoxine HCl (B6) 3 each PO HS 12/23/17 [Melatonin 3 mg Tablet] Memantine HCl [Namenda -] 5 mg PO DAILY 12/23/17 hydrALAZINE HCL [Apresoline -] 25 mg PO TID 12/23/17 REVIEW OF SYSTEMS CONSTITUTIONAL: Absent: fever, chills, diaphoresis, generalized weakness, malaise, loss of appetite, weight change HEENT: Absent: rhinorrhea, nasal congestion, throat pain, throat swelling, difficulty swallowing, mouth swelling, ear pain, eye pain, visual changes CARDIOVASCULAR: Absent: chest pain, syncope, palpitations, irregular heart rate, lightheadedness , peripheral edema RESPIRATORY: Absent: cough, shortness of breath, dyspnea with exertion, orthopnea, wheezing, stridor, hemoptysis GASTROINTESTINAL: Absent: abdominal pain, abdominal distension, nausea, vomiting, diarrhea, constipation, melena, hematochezia GENITOURINARY: Absent: dysuria, frequency, urgency, hesitancy, hematuria, flank pain, genital pain MUSCULOSKELETAL: Absent: myalgia, arthralgia, joint swelling, back pain, neck pain SKIN: Absent: rash, itching, pallor HEMATOLOGIC/IMMUNOLOGIC: Absent: easy bleeding, easy bruising, lymphadenopathy, frequent infections ENDOCRINE: Absent: unexplained weight gain, unexplained weight loss, heat intolerance, cold intolerance NEUROLOGIC: Absent: headache, focal weakness or paresthesias, dizziness, unsteady gait, seizure, mental status changes, bladder or bowel incontinence PSYCHIATRIC: Absent: anxiety, depression, suicidal or homicidal ideation, hallucinations. PHYSICAL EXAMINATION Vital Signs Period Temp Pulse Resp BP Sys/Chatterjee Pulse Ox Last 24 Hr 97.9 F-98.5 F 81-87 16-20 106-153/62-99 96 GENERAL: Awake, alert, oriented to self only, in no acute distress. HEAD: Normal with no signs of trauma. EYES: Pupils equal, round and reactive to light, extraocular movements intact, sclera anicteric, conjunctiva clear. No lid lag. EARS, NOSE, THROAT: oropharynx clear without exudates. Moist mucous membranes. NECK: Normal range of motion, supple without lymphadenopathy, JVD, or masses. LUNGS: Breath sounds equal, clear to auscultation bilaterally. No wheezes, and no crackles. No accessory muscle use. HEART: Regular rate and rhythm, normal S1 and S2 without murmur, rub or gallop. ABDOMEN: Soft, nontender, not distended, normoactive bowel sounds, no guarding, no rebound, no masses. No hepatomegaly or splenomegaly. MUSCULOSKELETAL: Normal range of motion at all joints. No bony deformities or tenderness. No CVA tenderness. UPPER EXTREMITIES: 2+ pulses, warm, well-perfused. No cyanosis. No clubbing. No peripheral edema. LOWER EXTREMITIES: 2+ pulses, warm, well-perfused. No calf tenderness. No peripheral edema. NEUROLOGICAL: Cranial nerves II-X intact. Normal speech. Limited cooperation on exam, moves upper extremities equally, sensory intact to LT, gait deferred SKIN: Warm, dry, normal turgor, no rashes or lesions noted, normal capillary refill. Rectal: small external hemorrhoid seen. No erythema or bleeding stigmata. CBCD WBC 8.1 K/mm3 (4.0-10.0) 12/25/17 05:15 RBC 3.95 M/mm3 (3.60-5.2) 12/25/17 05:15 Hgb 10.8 GM/dL (10.7-15.3) 12/25/17 05:15 Hct 33.0 % (32.4-45.2) 12/25/17 05:15 MCV 83.6 fl (80-96) 12/25/17 05:15 MCHC 32.8 g/dl (32.0-36.0) 12/25/17 05:15 RDW 20.2 % (11.6-15.6) H 12/25/17 05:15 Plt Count 187 K/MM3 (134-434) 12/25/17 05:15 MPV 9.8 fl (7.5-11.1) 12/25/17 05:15 CMP Sodium 146 mmol/L (136-145) H 12/25/17 05:15 Potassium 3.9 mmol/L (3.5-5.1) 12/25/17 05:15 Chloride 112 mmol/L (98-107) H 12/25/17 05:15 Carbon Dioxide 26 mmol/L (21-32) 12/25/17 05:15 Anion Gap 8 (8-16) 12/25/17 05:15 BUN 42 mg/dL (7-18) H 12/25/17 05:15 Creatinine 1.4 mg/dL (0.55-1.02) H 12/25/17 05:15 Creat Clearance w eGFR 36.76 (>60) 12/25/17 05:15 Random Glucose 49 mg/dL (74-106) L* 12/25/17 05:15 Calcium 6.4 mg/dL (8.5-10.1) L* 12/25/17 05:15 Total Bilirubin 0.3 mg/dL (0.2-1.0) 12/25/17 05:15 AST 700 U/L (15-37) H 12/25/17 05:15 ALT 335 U/L (12-78) H 12/25/17 05:15 Alkaline Phosphatase 120 U/L (45-117) H D 12/25/17 05:15 Total Protein 4.3 g/dl (6.4-8.2) L 12/25/17 05:15 Albumin 0.9 g/dl (3.4-5.0) L 12/25/17 05:15 CARDIAC ENZYMES Creatine Kinase 83057 IU/L (26-192) H 12/25/17 05:15 Troponin I 0.39 ng/ml (0.00-0.05) H 12/24/17 06:20 Imaging: CT head reviewed ASSESSMENT/PLAN: 72 yo f w/ PMH Alzheimer's dementia, HLD, HTN who comes into the hosptial s/p fall. The patient has difficulty remembering the circumstances around the fall or how long she was on the floor for. During my evaluation, she did know she was in the hosptial and could tell me the name. She denied having LOC and CT head was completed and did not show acute changes. Labs showed sodium 147, potassium 3.0, BUN 39, Cr 1.2, lactic acid 2.5, troponin .37 (being managed by cardiology). She remains awake, alert, though poor historian. Appears to be at baseline as she has h/o Alzheimer's Dementia. Can continue Namenda, possibly some delirium superimposed on dementia. IV/PO hydration. Monitor CPKs, replenish lytes. Cardiology following, monitor blood pressure, maintain normotensive range. Conitnue monitoring mental status. Would not change Namenda at this time, outpatient followup when not in acute setting of unfamiliar enviornment for more accurate evaluation. Continue ASA 81mg.
--- NOTE | 2017-12-25 18:33 | CON.GI ---
Consult Consult Specialty:: GI: Dr. Vela covering for Dr. eWsley who resumes care Referred by:: Dr. Bruner Reason for Consultation:: Abnormal LFTs - History of Present Illness Chief Complaint: Abnormal LFTs History of Present Illness: 72F admitted s/p fall from OR. She was admitted on 12/23. Her transaminases were elevated on admission as well as alk phos mildly and CPK. CPK has risen since admission as has transaminsases. Ms. Young denies any known liver disease. 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 She denies any focal compalints aside from fatigue. Called now to evaluate abnormal LFTs. - History Source History Provided By: Patient, Medical Record Limitations to Obtaining History: Poor Historian - Past Medical History SPECIALIST WOUND CARE: Yes: Dementia Cardio/Vascular: Yes: HTN, Hyperlipdemia - Alcohol/Substance Use Hx Alcohol Use: No History of Substance Use: reports: Heroin (Intranasal) - Smoking History Smoking history: Never smoked Have you smoked in the past 12 months: No - Social History Usual Living Arrangement: Halfway ADL: Support Services History of Recent Travel: No Home Medications - Allergies Allergies/Adverse Reactions: Allergies Allergy/AdvReac Type Severity Reaction Status Date / Time Penicillins Allergy Verified 12/23/17 16:03 - Home Medications Home Medications: Ambulatory Orders Amlodipine Besylate [Norvasc -] 5 mg PO DAILY 12/23/17 Aspirin 81 mg PO DAILY 12/23/17 Atorvastatin Ca [Lipitor] 80 mg PO HS 12/23/17 Docusate Sodium [Colace] 100 mg PO HS 12/23/17 Levofloxacin [Levaquin] 500 mg PO DAILY 12/23/17 Lisinopril [Prinivil] 20 mg PO BID 12/23/17 Melatonin/Pyridoxine HCl (B6) [Melatonin 3 mg Tablet] 3 each PO HS 12/23/17 Memantine HCl [Namenda -] 5 mg PO DAILY 12/23/17 hydrALAZINE HCL [Apresoline -] 25 mg PO TID 12/23/17 Family Disease History - Family Disease History Other Family History: Patient denies a family history of liver disease / colorectal cancer Review of Systems - Review of Systems Constitutional: reports: Chills Cardiovascular: denies: Chest Pain Respiratory: denies: SOB Gastrointestinal: denies: Abdominal Pain, Constipation, Diarrhea, Dysphagia, Nausea, Rectal Bleeding, Vomiting Physical Exam-GI Vital Signs: Vital Signs Temperature 98.4 F 12/25/17 14:10 Pulse Rate 78 12/25/17 14:10 Respiratory Rate 18 12/25/17 14:10 Blood Pressure 115/54 12/25/17 14:10 O2 Sat by Pulse Oximetry (%) 96 12/25/17 09:00 Constitutional: Yes: Calm Eyes: No: Sclera Icterus Cardiovascular: Yes: Regular Rate and Rhythm Respiratory: Yes: CTA Bilaterally Gastrointestinal Inspection: No: Distention, Scars ...Auscultate: Yes: Normoactive Bowel Sounds ...Palpate: No: Hepatomegaly, Splenomegaly, Tenderness ...Percussion: No: Tympanitic ...Rectal Exam: Yes: Other (No external lesion, no masses, bear stool guaiac negative) Edema: No Neurological: Yes: Alert, Oriented (x person only) Labs: CBC, BMP 12/25/17 05:15 12/25/17 05:15 INR, PTT INR 0.97 (0.82-1.09) 12/23/17 17:33 Hepatic Panel Total Bilirubin 0.3 mg/dL (0.2-1.0) 12/25/17 05:15 AST 700 U/L (15-37) H 12/25/17 05:15 ALT 335 U/L (12-78) H 12/25/17 05:15 Alkaline Phosphatase 120 U/L (45-117) H D 12/25/17 05:15 Albumin 0.9 g/dl (3.4-5.0) L 12/25/17 05:15 Problem List - Problems (1) Abnormal LFTs Assessment/Plan: suspect that rhabdomyolysis contributing to transaminitis Ordered abd US Ordered hepatitis A/B/C serolgies for the AM Avoid hepatotoxic agents Placed renal consult for rhabdomyolysis Monitor LFTs Code(s): R94.5 - ABNORMAL RESULTS OF LIVER FUNCTION STUDIES
[2017-12-25] MEDS: DOCUSATE SODIUM 100 MG CAPSULE (FP) PO SCH (21:25)
[2017-12-25] MEDS: SODIUM CHLORIDE 1,000 ML IV SCH (23:45)
[2017-12-26] MEDS: D5-1/2NS+20 MEQ KCL - 20 MEQ/1,000 ML INFUS.BAG IV SCH ×2 (02:21→21:24)
[2017-12-26] MEDS: hydrALAZINE HCL 25 MG TABLET (FP) PO SCH ×3 (06:51→21:25)
[2017-12-26] MEDS: HEPARIN NA (PORCINE) 5,000 UNITS/ML 1ML VIAL SQ SCH ×3 (06:51→21:25)
[2017-12-26 07:05] LABS: BASO % 0.4 % (0-2.0); EOS % 1.2 % (0-4.5); HEMATOCRIT 32.2 % (32.4-45.2); HEMOGLOBIN 10.7 GM/dL (10.7-15.3); LYMPH % 11.6 % (8-40); MCH 27.8 pg (25.7-33.7); MCHC 33.3 g/dl (32.0-36.0); MEAN CELL VOLUME 83.4 fl (80-96); MEAN PLT VOLUME 9.5 fl (7.5-11.1); MONO % 3.7 % (3.8-10.2); NEUT % 83.1 % (42.8-82.8); PLATELET COUNT 187 K/MM3 (134-434); RBC 3.86 M/mm3 (3.60-5.2); RDW 20.5 % (11.6-15.6); WHITE BLOOD COUNT 7.9 K/mm3 (4.0-10.0)
[2017-12-26 07:32] LABS: ANION GAP 6 (8-16); BLOOD UREA NITROGEN 44 mg/dL (7-18); CHLORIDE 111 mmol/L (98-107); CO2 27 mmol/L (21-32); GLUCOSE,RANDOM 113 mg/dL (74-106); POTASSIUM 4.1 mmol/L (3.5-5.1); SODIUM 144 mmol/L (136-145)
[2017-12-26 07:47] LABS: ALK PHOS 115 U/L (45-117); BILIRUBIN,DIRECT < 0.2 mg/dL (0.0-0.2); BILIRUBIN,TOTAL 0.2 mg/dL (0.2-1.0); TOT PROT 4.4 g/dl (6.4-8.2)
[2017-12-26 08:01] LABS: ALK PHOS 113 U/L (45-117); BILIRUBIN,TOTAL 0.2 mg/dL (0.2-1.0); CREATININE 1.5 mg/dL (0.55-1.02); TOT PROT 4.4 g/dl (6.4-8.2)
[2017-12-26 08:22] LABS: ALBUMIN 0.9 g/dl (3.4-5.0); CALCIUM 6.4 mg/dL (8.5-10.1); SGOT/AST 754 U/L (15-37); SGPT/ALT 408 U/L (12-78); SGPT/ALT 410 U/L (12-78)
[2017-12-26] MEDS: amLODIPine BESYLATE 5 MG TABLET (FP) PO SCH (10:56)
[2017-12-26] MEDS: ASPIRIN 81 MG CHEWABLE TABLETS PO SCH (10:56)
[2017-12-26] MEDS: MEMANTINE HCL 5 MG TABLET (UD) PO SCH (10:56)
[2017-12-26 11:30] LABS: ANISOCYTOSIS 2+; MACROCYTOSIS 0; PLATELET ESTIMATE NORMAL
--- NOTE | 2017-12-26 11:35 | PN ---
Progress Note, Physician - Current Medication List Current Medications: Active Medications Amlodipine Besylate (Norvasc -) 5 mg PO DAILY [facility] Last Admin: 12/26/17 10:56 Dose: 5 mg Aspirin (Asa -) 81 mg PO DAILY [facility] Last Admin: 12/26/17 10:56 Dose: 81 mg Docusate Sodium (Colace -) 100 mg PO HS [facility] Last Admin: 12/25/17 21:25 Dose: 100 mg Heparin Sodium (Porcine) (Heparin -) 5,000 unit SQ TID [facility] Last Admin: 12/26/17 06:51 Dose: 5,000 unit Hydralazine HCl (Apresoline -) 25 mg PO TID [facility] Last Admin: 12/26/17 06:51 Dose: 25 mg Sodium Chloride (Normal Saline -) 1,000 mls @ 42 mls/hr IV ASDIR [facility] Last Admin: 12/25/17 23:45 Dose: Not Given Potassium Chloride/Dextrose/Sod Cl (D5-1/2ns+20 Meq Kcl -) 20 meq in 1,000 mls @ 100 mls/hr IV ASDIR [facility] Last Admin: 12/26/17 02:21 Dose: 100 mls/hr Memantine (Namenda -) 5 mg PO DAILY [facility] Last Admin: 12/26/17 10:56 Dose: 5 mg - Objective Vital Signs: Vital Signs Temperature 98.3 F 12/26/17 05:58 Pulse Rate 83 12/26/17 05:58 Respiratory Rate 20 12/26/17 05:58 Blood Pressure 134/68 12/26/17 05:58 O2 Sat by Pulse Oximetry (%) 99 12/25/17 21:00 Cardiovascular: Yes: S1, S2 Respiratory: Yes: Regular, CTA Bilaterally Gastrointestinal: Yes: Normal Bowel Sounds, Soft. No: Tenderness Edema: No Labs: CBC, BMP 12/26/17 05:30 12/26/17 05:30 INR, PTT INR 0.97 (0.82-1.09) 12/23/17 17:33 Problem List - Problems (1) Hypoglycemia Assessment/Plan: -Change ivf to d5 -endo Code(s): E16.2 - HYPOGLYCEMIA, UNSPECIFIED (2) Dementia Assessment/Plan: namenda Code(s): F03.90 - UNSPECIFIED DEMENTIA WITHOUT BEHAVIORAL DISTURBANCE (3) Rhabdomyolysis Assessment/Plan: ivf trend CPK lactic now trending down Code(s): M62.82 - RHABDOMYOLYSIS (4) Status post fall Assessment/Plan: carotid dopppler PT eval cardiology neurology neuro check Code(s): Z91.81 - HISTORY OF FALLING (5) Troponin I above reference range Assessment/Plan: trend troponins likely due to increase demand--mild elevation cardiology noted- aspirin ivf Code(s): R74.8 - ABNORMAL LEVELS OF OTHER SERUM ENZYMES (6) Abnormal LFTs Assessment/Plan: -US -GI CONSULT NOTED Code(s): R94.5 - ABNORMAL RESULTS OF LIVER FUNCTION STUDIES
--- NOTE | 2017-12-26 12:01 | PN ---
Progress Note (short form) - Note Progress Note: s: no cp sob palps dizzy o: Vital Signs Period Temp Pulse Resp BP Sys/Chatterjee Pulse Ox Last 24 Hr 97.5 F-98.4 F 78-83 18-20 104-137/54-71 99 nad no jvd rrr s1s2 no mrg no le e/c/c abd nt nd pos bs cta bl nl eff awake alert appropriate no jaundice diaphoresis Current Medications Generic Name Dose Route Start Last Admin Trade Name Dionne PRN Reason Stop Dose Admin Amlodipine Besylate 5 mg 12/24/17 10:00 12/26/17 10:56 Norvasc - PO 5 mg DAILY [facility] Administration Aspirin 81 mg 12/25/17 10:00 12/26/17 10:56 Asa - PO 81 mg DAILY [facility] Administration Docusate Sodium 100 mg 12/24/17 22:00 12/25/17 21:25 Colace - PO 100 mg HS [facility]ER Administration Heparin Sodium (Porcine) 5,000 unit 12/24/17 06:00 12/26/17 06:51 Heparin - SQ 5,000 unit TID [facility] Administration Hydralazine HCl 25 mg 12/24/17 06:00 12/26/17 06:51 Apresoline - PO 25 mg TID [facility]ER Administration Sodium Chloride 1,000 mls @ 42 mls/hr 12/23/17 23:45 12/25/17 23:45 Normal Saline - IV Not Given ASDIR [facility] Potassium Chloride/Dextrose/Sod Cl 20 meq in 1,000 mls @ 100 mls/hr 12/25/17 11:45 12/26/17 02:21 D5-1/2ns+20 Meq Kcl - IV 100 mls/hr ASDIR [facility] Administration Memantine 5 mg 12/24/17 10:00 12/26/17 10:56 Namenda - PO 5 mg DAILY [facility] Administration CBC, BMP 12/26/17 05:30 12/26/17 05:30 ecg: sr, pac, nl intervals, no ischemic changes cxr: no chf tele: sr echo 12/2017: nl lv/rv, mild lae, mild mr, mild-mod tr, mild pr, rvsp 30-40 a/p: 72 f hx htn, dementia, sent from [facility] after fall. fall: -details unclear -no signs acs or chf -echo unremarkable, tele benign rhabdo: -cont ivfs pos trops: - borderline trop elevation in the setting of very high ck from rhabdo. CKMB index is low. No signs acs, trop elevation likely from rhabdo. htn: -stable, resume home meds hld: -statin on hold due to elevated lfts can dc tele
--- NOTE | 2017-12-26 13:28 | PN ---
Progress Note (short form) - Note Progress Note: Neurology CHIEF COMPLAINT: s/p fall HISTORY OF PRESENT ILLNESS: 72 yo f w/ PMH Alzheimer's dementia, HLD, HTN who comes into the hosptial s/p fall. The patient has difficulty remembering the circumstances around the fall or how long she was on the floor for. During my evaluation, she did know she was in the hosptial and could tell me the name. She denied having LOC and CT head was completed and did not show acute changes. Labs showed sodium 147, potassium 3.0, BUN 39, Cr 1.2, lactic acid 2.5, troponin .37 (being managed by cardiology). She remains awake, alert, though poor historian. Appears to be at baseline as she has h/o Alzheimer's Dementia and is on Namenda 5mg. Somnolent this AM but no acute events overnight. GI note reviewed, LFT elevation, avoid hepatotoxic substances. Echo reviewed, normal LV function. Carotids completed, report pending. Active Medications Amlodipine Besylate (Norvasc -) 5 mg PO DAILY [facility] Last Admin: 12/26/17 10:56 Dose: 5 mg Aspirin (Asa -) 81 mg PO DAILY [facility] Last Admin: 12/26/17 10:56 Dose: 81 mg Docusate Sodium (Colace -) 100 mg PO HS [facility] Last Admin: 12/25/17 21:25 Dose: 100 mg Heparin Sodium (Porcine) (Heparin -) 5,000 unit SQ TID [facility] Last Admin: 12/26/17 06:51 Dose: 5,000 unit Hydralazine HCl (Apresoline -) 25 mg PO TID [facility] Last Admin: 12/26/17 06:51 Dose: 25 mg Sodium Chloride (Normal Saline -) 1,000 mls @ 42 mls/hr IV ASDIR [facility] Last Admin: 12/25/17 23:45 Dose: Not Given Potassium Chloride/Dextrose/Sod Cl (D5-1/2ns+20 Meq Kcl -) 20 meq in 1,000 mls @ 100 mls/hr IV ASDIR [facility] Last Admin: 12/26/17 02:21 Dose: 100 mls/hr Memantine (Namenda -) 5 mg PO DAILY [facility] Last Admin: 12/26/17 10:56 Dose: 5 mg PHYSICAL EXAMINATION Vital Signs Period Temp Pulse Resp BP Sys/Chatterjee Pulse Ox Last 24 Hr 97.5 F-98.4 F 78-83 18-20 104-142/54-74 99-99 GENERAL: Awake, alert, oriented to self only, in no acute distress. HEAD: Normal with no signs of trauma. EYES: Pupils equal, round and reactive to light, extraocular movements intact, sclera anicteric, conjunctiva clear. No lid lag. EARS, NOSE, THROAT: oropharynx clear without exudates. Moist mucous membranes. NECK: Normal range of motion, supple without lymphadenopathy, JVD, or masses. LUNGS: Breath sounds equal, clear to auscultation bilaterally. No wheezes, and no crackles. No accessory muscle use. HEART: Regular rate and rhythm, normal S1 and S2 without murmur, rub or gallop. ABDOMEN: Soft, nontender, not distended, normoactive bowel sounds, no guarding, no rebound, no masses. No hepatomegaly or splenomegaly. MUSCULOSKELETAL: Normal range of motion at all joints. No bony deformities or tenderness. No CVA tenderness. UPPER EXTREMITIES: 2+ pulses, warm, well-perfused. No cyanosis. No clubbing. No peripheral edema. LOWER EXTREMITIES: 2+ pulses, warm, well-perfused. No calf tenderness. No peripheral edema. NEUROLOGICAL: Cranial nerves II-X intact. Normal speech. Limited cooperation on exam, moves upper extremities equally, sensory intact to LT, gait deferred SKIN: Warm, dry, normal turgor, no rashes or lesions noted, normal capillary refill. Rectal: small external hemorrhoid seen. No erythema or bleeding stigmata. CBCD WBC 7.9 K/mm3 (4.0-10.0) 12/26/17 05:30 RBC 3.86 M/mm3 (3.60-5.2) 12/26/17 05:30 Hgb 10.7 GM/dL (10.7-15.3) 12/26/17 05:30 Hct 32.2 % (32.4-45.2) L 12/26/17 05:30 MCV 83.4 fl (80-96) 12/26/17 05:30 MCHC 33.3 g/dl (32.0-36.0) 12/26/17 05:30 RDW 20.5 % (11.6-15.6) H 12/26/17 05:30 Plt Count 187 K/MM3 (134-434) 12/26/17 05:30 MPV 9.5 fl (7.5-11.1) 12/26/17 05:30 CMP Sodium 144 mmol/L (136-145) 12/26/17 05:30 Potassium 4.1 mmol/L (3.5-5.1) 12/26/17 05:30 Chloride 111 mmol/L (98-107) H 12/26/17 05:30 Carbon Dioxide 27 mmol/L (21-32) 12/26/17 05:30 Anion Gap 6 (8-16) L 12/26/17 05:30 BUN 44 mg/dL (7-18) H 12/26/17 05:30 Creatinine 1.5 mg/dL (0.55-1.02) H 12/26/17 05:30 Creat Clearance w eGFR 33.94 (>60) 12/26/17 05:30 Random Glucose 113 mg/dL (74-106) H 12/26/17 05:30 Calcium 6.4 mg/dL (8.5-10.1) L* 12/26/17 05:30 Total Bilirubin 0.2 mg/dL (0.2-1.0) 12/26/17 05:30 AST 754 U/L (15-37) H 12/26/17 05:30 ALT 408 U/L (12-78) H 12/26/17 05:30 Alkaline Phosphatase 113 U/L (45-117) 12/26/17 05:30 Total Protein 4.4 g/dl (6.4-8.2) L 12/26/17 05:30 Albumin 0.9 g/dl (3.4-5.0) L 12/26/17 05:30 CARDIAC ENZYMES Creatine Kinase 20995 IU/L (26-192) H 12/26/17 05:30 Troponin I 0.30 ng/ml (0.00-0.05) H 12/26/17 05:30 Imaging: CT head reviewed Echo reviewed ASSESSMENT/PLAN: 72 yo f w/ PMH Alzheimer's dementia, HLD, HTN who comes into the hosptial s/p fall. The patient has difficulty remembering the circumstances around the fall or how long she was on the floor for. During my evaluation, she did know she was in the hosptial and could tell me the name. She denied having LOC and CT head was completed and did not show acute changes. Labs showed sodium 147, potassium 3.0, BUN 39, Cr 1.2, lactic acid 2.5, troponin .37 (being managed by cardiology). She remains awake, alert, though poor historian. Appears to be at baseline as she has h/o Alzheimer's Dementia. Can continue Namenda, possibly some delirium superimposed on dementia. IV/PO hydration. Monitor CPKs, replenish lytes. Cardiology following, monitor blood pressure, maintain normotensive range. Conitnue monitoring mental status. Would not change Namenda at this time, can have outpatient followup when not in acute setting of unfamiliar environment for more accurate evaluation. Continue ASA 81mg. Carotiod doppler report pending.
--- NOTE | 2017-12-26 15:28 | CONSULT ---
Consult Consult Specialty:: Nephrology Reason for Consultation:: rhabdo - History of Present Illness Chief Complaint: presents to the ER after a fall History of Present Illness: Pt is a 72 year old female with pmhx of HTN, HLD, insomnia, and drug use who was sent to the hospital after a fall. She was found to have transaminitis and renal failure. I was called to evaluate the pt for rhabdo. She does not remember how long she was on the floor. She denies shortness of breath. She denies history of kidney disease. She denies history of liver disease. She denies chest pain or palpitations. 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) - Smoking History Smoking history: Never smoked Have you smoked in the past 12 months: No - Social History Usual Living Arrangement: Residential ADL: Support Services History of Recent Travel: No Home Medications - Allergies Allergies/Adverse Reactions: Allergies Allergy/AdvReac Type Severity Reaction Status Date / Time Penicillins Allergy Verified 12/23/17 16:03 - Home Medications Home Medications: Ambulatory Orders Amlodipine Besylate [Norvasc -] 5 mg PO DAILY 12/23/17 Aspirin 81 mg PO DAILY 12/23/17 Atorvastatin Ca [Lipitor] 80 mg PO HS 12/23/17 Docusate Sodium [Colace] 100 mg PO HS 12/23/17 Levofloxacin [Levaquin] 500 mg PO DAILY 12/23/17 Lisinopril [Prinivil] 20 mg PO BID 12/23/17 Melatonin/Pyridoxine HCl (B6) [Melatonin 3 mg Tablet] 3 each PO HS 12/23/17 Memantine HCl [Namenda -] 5 mg PO DAILY 12/23/17 hydrALAZINE HCL [Apresoline -] 25 mg PO TID 12/23/17 Family Disease History - Family Disease History Family History: Denies Other Family History: Patient denies a family history of liver disease / colorectal cancer Review of Systems - Review of Systems Constitutional: reports: Malaise Eyes: reports: No Symptoms HENT: reports: No Symptoms Neck: reports: No Symptoms Cardiovascular: reports: No Symptoms Respiratory: reports: No Symptoms Gastrointestinal: reports: No Symptoms Genitourinary: reports: No Symptoms Musculoskeletal: reports: No Symptoms Integumentary: reports: No Symptoms Neurological: reports: No Symptoms Endocrine: reports: No Symptoms Hematology/Lymphatic: reports: No Symptoms Psychiatric: reports: No Symptoms Physical Exam Vital Signs: Vital Signs Temperature 97.9 F 12/26/17 14:10 Pulse Rate 86 12/26/17 14:10 Respiratory Rate 18 12/26/17 14:10 Blood Pressure 133/90 12/26/17 14:10 O2 Sat by Pulse Oximetry (%) 99 12/26/17 09:00 Constitutional: Yes: Calm Eyes: Yes: Conjunctiva Clear HENT: Yes: Atraumatic Cardiovascular: Yes: S1, S2 Respiratory: Yes: On Nasal O2 Gastrointestinal: Yes: Soft Renal/: Yes: Incontinence Musculoskeletal: Yes: Muscle Weakness Edema: No Neurological: Yes: Oriented Psychiatric: Yes: Oriented Labs: CBC, BMP 12/26/17 05:30 12/26/17 05:30 Laboratory Tests 12/23/17 12/23/17 12/24/17 17:33 22:20 06:20 Creatinine 1.2 H Creatine Kinase 7230 H 8798 H Urine Protein 3+ H Urine Blood 3+ H Hep Bs Antigen Hep Bs Antibody Hep B Core Total Ab Hep C Ab Diagnostic 12/25/17 12/25/17 12/26/17 05:15 11:20 05:30 Creatinine 1.5 H Creatine Kinase 40457 H 66178 H 00032 H Urine Protein Urine Blood Hep Bs Antigen Hep Bs Antibody Hep B Core Total Ab Hep C Ab Diagnostic 12/26/17 05:30 Creatinine Creatine Kinase Urine Protein Urine Blood Hep Bs Antigen Pending Hep Bs Antibody Pending Hep B Core Total Ab Pending Hep C Ab Diagnostic Pending Imaging - Results Chest X-ray: Report Reviewed Problem List - Problems (1) Abnormal LFTs Code(s): R94.5 - ABNORMAL RESULTS OF LIVER FUNCTION STUDIES (2) Rhabdomyolysis Code(s): M62.82 - RHABDOMYOLYSIS Assessment/Plan Current Medications Generic Name Dose Route Start Last Admin Trade Name Freq PRN Reason Stop Dose Admin Amlodipine Besylate 5 mg 12/24/17 10:00 12/26/17 10:56 Norvasc - PO 5 mg DAILY [facility] Administration Aspirin 81 mg 12/25/17 10:00 12/26/17 10:56 Asa - PO 81 mg DAILY [facility] Administration Docusate Sodium 100 mg 12/24/17 22:00 12/25/17 21:25 Colace - PO 100 mg HS [facility] Administration Heparin Sodium (Porcine) 5,000 unit 12/24/17 06:00 12/26/17 13:51 Heparin - SQ 5,000 unit TID [facility] Administration Hydralazine HCl 25 mg 12/24/17 06:00 12/26/17 13:51 Apresoline - PO 25 mg TID [facility] Administration Sodium Chloride 1,000 mls @ 42 mls/hr 12/23/17 23:45 12/25/17 23:45 Normal Saline - IV Not Given ASDIR [facility] Potassium Chloride/Dextrose/Sod Cl 20 meq in 1,000 mls @ 100 mls/hr 12/25/17 11:45 12/26/17 02:21 D5-1/2ns+20 Meq Kcl - IV 100 mls/hr ASDIR [facility] Administration Memantine 5 mg 12/24/17 10:00 12/26/17 10:56 Namenda - PO 5 mg DAILY [facility] Administration Impression 1. Rhabdo 2. transaminitis 3. HTN 4. dementia Plan - cont with fluids for rhabdo - monitor volume status - pt had congestion on cxr will not increase rate of fluids - repeat cxr in am - cont to monitor cpk level - GI input appreciated - if she developed volume overload can use lasix - will follow Dr Piña
[2017-12-26] MEDS: DOCUSATE SODIUM 100 MG CAPSULE (FP) PO SCH (21:25)
--- NOTE | 2017-12-27 00:34 | CONSULT ---
Consult Consult Specialty:: endocrine Referred by:: dr.annabi salamanca Reason for Consultation:: hypernatremia - History of Present Illness Chief Complaint: weakness and lethargic History of Present Illness: 72 yo f w/ PMH Alzheimer's dementia, HLD, HTN who comes into the ED s/p fall earlier today. The patient feel on the floor at home. The patient denies LOC, head trauma, palpitations, chest pain, SOB, dizziness or pain. 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) - Smoking History Smoking history: Never smoked Have you smoked in the past 12 months: No - Social History Usual Living Arrangement: Long-Term ADL: Support Services History of Recent Travel: No Home Medications - Allergies Allergies/Adverse Reactions: Allergies Allergy/AdvReac Type Severity Reaction Status Date / Time Penicillins Allergy Verified 12/23/17 16:03 - Home Medications Home Medications: Ambulatory Orders Amlodipine Besylate [Norvasc -] 5 mg PO DAILY 12/23/17 Aspirin 81 mg PO DAILY 12/23/17 Atorvastatin Ca [Lipitor] 80 mg PO HS 12/23/17 Docusate Sodium [Colace] 100 mg PO HS 12/23/17 Levofloxacin [Levaquin] 500 mg PO DAILY 12/23/17 Lisinopril [Prinivil] 20 mg PO BID 12/23/17 Melatonin/Pyridoxine HCl (B6) [Melatonin 3 mg Tablet] 3 each PO HS 12/23/17 Memantine HCl [Namenda -] 5 mg PO DAILY 12/23/17 hydrALAZINE HCL [Apresoline -] 25 mg PO TID 12/23/17 Family Disease History - Family Disease History Other Family History: Patient denies a family history of liver disease / colorectal cancer Review of Systems - Review of Systems Constitutional: reports: Lethargy, Weakness HENT: reports: No Symptoms Neck: reports: No Symptoms Cardiovascular: reports: Shortness of Breath Respiratory: reports: Exercise Intolerance, SOB on Exertion Gastrointestinal: reports: No Symptoms Genitourinary: reports: No Symptoms Breasts: reports: No Symptoms Reported Musculoskeletal: reports: Muscle Weakness Endocrine: reports: Unexplained Weight Loss Physical Exam Vital Signs: Vital Signs Temperature 98.9 F 12/27/17 00:13 Pulse Rate 86 12/27/17 00:13 Respiratory Rate 20 12/27/17 00:13 Blood Pressure 140/74 12/27/17 00:13 O2 Sat by Pulse Oximetry (%) 97 12/26/17 20:34 Constitutional: Yes: Anxious Eyes: Yes: EOM Intact HENT: Yes: Normocephalic Neck: Yes: Trachea Midline Cardiovascular: Yes: Regular Rate and Rhythm Respiratory: Yes: CTA Bilaterally Gastrointestinal: Yes: Normal Bowel Sounds ...Rectal Exam: Yes: Deferred Renal/: Yes: WNL Musculoskeletal: Yes: WNL Extremities: Yes: WNL Neurological: Yes: Alert Labs: CBC, BMP 12/26/17 05:30 12/26/17 05:30 Problem List - Problems (1) Abnormal LFTs Code(s): R94.5 - ABNORMAL RESULTS OF LIVER FUNCTION STUDIES (2) Hypoglycemia Code(s): E16.2 - HYPOGLYCEMIA, UNSPECIFIED (3) Hypokalemia Code(s): E87.6 - HYPOKALEMIA (4) Rhabdomyolysis Code(s): M62.82 - RHABDOMYOLYSIS (5) Troponin I above reference range Code(s): R74.8 - ABNORMAL LEVELS OF OTHER SERUM ENZYMES Assessment/Plan Current Active Problems Abnormal LFTs (Acute) Dementia (Acute) Hypoglycemia (Acute) Hypokalemia (Acute) Rhabdomyolysis (Acute) Status post fall (Acute) Troponin I above reference range (Acute) Abnormal Lab Results 12/26/17 12/26/17 12/26/17 05:30 05:30 05:30 Hct 32.2 L RDW 20.5 H Neutrophils % 83.1 H Monocytes % 3.7 L Chloride 111 H Anion Gap 6 L BUN 44 H Creatinine 1.5 H Random Glucose 113 H Calcium 6.4 L* AST 754 H 754 H ALT 408 H 410 H Creatine Kinase 44016 H Creatine Kinase Index 13.1 H* CK-MB (CK-2) 110.22 H Troponin I 0.30 H Total Protein 4.4 L 4.4 L Albumin 0.9 L 0.9 L Laboratory Results - last 24 hr 12/26/17 12/26/17 12/26/17 05:30 05:30 05:30 WBC 7.9 RBC 3.86 Hgb 10.7 Hct 32.2 L MCV 83.4 MCH 27.8 MCHC 33.3 RDW 20.5 H Plt Count 187 MPV 9.5 Absolute Neuts (auto) 6.6 Neutrophils % 83.1 H Lymphocytes % 11.6 Monocytes % 3.7 L Eosinophils % 1.2 D Basophils % 0.4 Nucleated RBC % 0 Hypochromia 0 Platelet Estimate Normal Polychromasia 0 Anisocytosis 2+ Microcytosis 1+ Macrocytosis 0 Wayne Cells 1+ Sodium 144 Potassium 4.1 Chloride 111 H Carbon Dioxide 27 Anion Gap 6 L BUN 44 H Creatinine 1.5 H Creat Clearance w eGFR 33.94 Random Glucose 113 H Calcium 6.4 L* Total Bilirubin 0.2 0.2 Direct Bilirubin < 0.2 AST 754 H 754 H ALT 408 H 410 H Alkaline Phosphatase 113 115 Creatine Kinase 65553 H Creatine Kinase Index 13.1 H* CK-MB (CK-2) 110.22 H Troponin I 0.30 H Total Protein 4.4 L 4.4 L Albumin 0.9 L 0.9 L plan: nutrition calorie count hb a1c cpeptide proinsulin level hypoglycemia gi evaluation bgm tid ac
[2017-12-27] MEDS: HEPARIN NA (PORCINE) 5,000 UNITS/ML 1ML VIAL SQ SCH ×3 (06:37→21:00)
[2017-12-27] MEDS: hydrALAZINE HCL 25 MG TABLET (FP) PO SCH ×3 (06:37→21:00)
[2017-12-27 07:16] LABS: ANION GAP 6 (8-16); BLOOD UREA NITROGEN 39 mg/dL (7-18); CHLORIDE 113 mmol/L (98-107); CO2 26 mmol/L (21-32); GLUCOSE,RANDOM 103 mg/dL (74-106); POTASSIUM 4.9 mmol/L (3.5-5.1); SODIUM 145 mmol/L (136-145)
[2017-12-27 07:44] LABS: ALK PHOS 117 U/L (45-117); BILIRUBIN,TOTAL 0.2 mg/dL (0.2-1.0); CREATININE 1.4 mg/dL (0.55-1.02); TOT PROT 4.3 g/dl (6.4-8.2)
[2017-12-27 07:46] LABS: ALBUMIN 0.9 g/dl (3.4-5.0); SGOT/AST 705 U/L (15-37); SGPT/ALT 436 U/L (12-78)
[2017-12-27 07:47] LABS: CALCIUM 6.9 mg/dL (8.5-10.1)
--- NOTE | 2017-12-27 09:31 | PN ---
Progress Note, Physician History of Present Illness: Cardiology for Ginelli/Gitig Denies near or true syncope, no further falls. No events on telemetry. - Current Medication List Current Medications: Active Medications Amlodipine Besylate (Norvasc -) 5 mg PO DAILY [facility] Last Admin: 12/26/17 10:56 Dose: 5 mg Aspirin (Asa -) 81 mg PO DAILY [facility] Last Admin: 12/26/17 10:56 Dose: 81 mg Docusate Sodium (Colace -) 100 mg PO HS [facility] Last Admin: 12/26/17 21:25 Dose: 100 mg Heparin Sodium (Porcine) (Heparin -) 5,000 unit SQ TID [facility] Last Admin: 12/27/17 06:37 Dose: 5,000 unit Hydralazine HCl (Apresoline -) 25 mg PO TID [facility] Last Admin: 12/27/17 06:37 Dose: 25 mg Sodium Chloride (Normal Saline -) 1,000 mls @ 42 mls/hr IV ASDIR [facility] Last Admin: 12/25/17 23:45 Dose: Not Given Potassium Chloride/Dextrose/Sod Cl (D5-1/2ns+20 Meq Kcl -) 20 meq in 1,000 mls @ 100 mls/hr IV ASDIR [facility] Last Admin: 12/26/17 21:24 Dose: 100 mls/hr Memantine (Namenda -) 5 mg PO DAILY [facility] Last Admin: 12/26/17 10:56 Dose: 5 mg - Objective Vital Signs: Vital Signs Temperature 98.4 F 12/27/17 05:00 Pulse Rate 92 H 12/27/17 05:00 Respiratory Rate 20 12/27/17 05:00 Blood Pressure 158/76 12/27/17 05:00 O2 Sat by Pulse Oximetry (%) 97 12/26/17 20:34 Constitutional: Yes: No Distress, Calm, Thin Neck: Yes: Supple Cardiovascular: Yes: Regular Rate and Rhythm Respiratory: Yes: Regular, Diminished, On Nasal O2 Gastrointestinal: Yes: Soft, Hypoactive Bowel Sounds Edema: No Labs: CBC, BMP 12/26/17 05:30 12/27/17 05:30 INR, PTT INR 0.97 (0.82-1.09) 12/23/17 17:33 - ....Imaging Chest X-ray: Report Reviewed (Left base ATX, upper lobes improved aeration) Problem List - Problems (1) [id number] kidney injury Code(s): N17.9 - ACUTE KIDNEY FAILURE, UNSPECIFIED; N18.9 - CHRONIC KIDNEY DISEASE, UNSPECIFIED Qualifiers: Chronic kidney disease stage: stage 2 (mild) (2) Abnormal LFTs Code(s): R94.5 - ABNORMAL RESULTS OF LIVER FUNCTION STUDIES (3) Dementia Code(s): F03.90 - UNSPECIFIED DEMENTIA WITHOUT BEHAVIORAL DISTURBANCE Qualifiers: Dementia type: unspecified type Dementia behavioral disturbance: without behavioral disturbance Qualified Code(s): F03.90 - Unspecified dementia without behavioral disturbance (4) Rhabdomyolysis Code(s): M62.82 - RHABDOMYOLYSIS Qualifiers: Rhabdomyolysis type: traumatic Encounter type: subsequent encounter Qualified Code(s): T79.6XXD - Traumatic ischemia of muscle, subsequent encounter (5) Status post fall Code(s): Z91.81 - HISTORY OF FALLING (6) Troponin I above reference range Code(s): R74.8 - ABNORMAL LEVELS OF OTHER SERUM ENZYMES Assessment/Plan ecg: sr, pac, nl intervals, no ischemic changes cxr: no chf tele: sr echo 12/2017: nl lv/rv, mild lae, mild mr, mild-mod tr, mild pr, rvsp 30-40 a/p: 72 f hx htn, dementia, sent from [place] after fall. fall: -details unclear -no signs acs or chf -echo unremarkable, tele benign, DVT prophylaxis rhabdo: -cont ivfs with monitor CPK trending downwards Acute on CKD: Monitor renal recovery and electrolytes pos trops: - borderline trop elevation in the setting of very high ck from rhabdo. CKMB index is low. No signs acs, trop elevation likely from rhabdo. htn: -stable, resume home meds ASA 81 qd, Norvasc 5 qd, Hydralazine 25 tid hld: -statin on hold due to elevated lfts can dc tele
[2017-12-27] MEDS: ASPIRIN 81 MG CHEWABLE TABLETS PO SCH (09:32)
[2017-12-27] MEDS: MEMANTINE HCL 5 MG TABLET (UD) PO SCH (09:32)
[2017-12-27] MEDS: amLODIPine BESYLATE 5 MG TABLET (FP) PO SCH (09:32)
--- NOTE | 2017-12-27 13:15 | PN ---
Progress Note, Physician Chief Complaint: patient in bed arousable says she is ok labs noted - Current Medication List Current Medications: Active Medications Amlodipine Besylate (Norvasc -) 5 mg PO DAILY [facility] Last Admin: 12/27/17 09:32 Dose: 5 mg Aspirin (Asa -) 81 mg PO DAILY [facility] Last Admin: 12/27/17 09:32 Dose: 81 mg Docusate Sodium (Colace -) 100 mg PO HS [facility] Last Admin: 12/26/17 21:25 Dose: 100 mg Heparin Sodium (Porcine) (Heparin -) 5,000 unit SQ TID [facility] Last Admin: 12/27/17 06:37 Dose: 5,000 unit Hydralazine HCl (Apresoline -) 25 mg PO TID [facility] Last Admin: 12/27/17 06:37 Dose: 25 mg Dextrose/Sodium Chloride (D5-1/2ns -) 1,000 mls @ 100 mls/hr IV ASDIR [facility] Memantine (Namenda -) 5 mg PO DAILY [facility] Last Admin: 12/27/17 09:32 Dose: 5 mg - Objective Vital Signs: Vital Signs Temperature 98.4 F 12/27/17 10:00 Pulse Rate 80 12/27/17 10:00 Respiratory Rate 20 12/27/17 10:00 Blood Pressure 144/72 12/27/17 10:00 O2 Sat by Pulse Oximetry (%) 97 12/27/17 09:00 Constitutional: Yes: Calm Cardiovascular: Yes: Regular Rate and Rhythm, S1, S2 Respiratory: Yes: CTA Bilaterally, Diminished (at the bases) Gastrointestinal: Yes: Normal Bowel Sounds, Soft Edema: No Neurological: Yes: Other (sleeping can be aroused) Labs: CBC, BMP 12/26/17 05:30 12/27/17 05:30 INR, PTT INR 0.97 (0.82-1.09) 12/23/17 17:33 Problem List - Problems (1) Status post fall Assessment/Plan: carotid dopppler PT eval noted cardiology on board neurology consult appreciated jose cruz continue namenda neuro check Code(s): Z91.81 - HISTORY OF FALLING (2) Troponin I above reference range Assessment/Plan: trend troponins - secondary to Rhabdomyolysis cardiology follow up apreicated today CPK slightly lower continue IVF aspirin 81 mg daily Code(s): R74.8 - ABNORMAL LEVELS OF OTHER SERUM ENZYMES (3) Rhabdomyolysis Assessment/Plan: ivf trend CPK lactic now trending down Code(s): M62.82 - RHABDOMYOLYSIS Qualifiers: Rhabdomyolysis type: traumatic Encounter type: subsequent encounter Qualified Code(s): T79.6XXD - Traumatic ischemia of muscle, subsequent encounter (4) Hypokalemia Assessment/Plan: resolved check magnesium- normal Code(s): E87.6 - HYPOKALEMIA (5) Dementia Assessment/Plan: namenda Code(s): F03.90 - UNSPECIFIED DEMENTIA WITHOUT BEHAVIORAL DISTURBANCE Qualifiers: Dementia type: unspecified type Dementia behavioral disturbance: without behavioral disturbance Qualified Code(s): F03.90 - Unspecified dementia without behavioral disturbance (6) Abnormal LFTs Assessment/Plan: ultrasound shows coarse echotexture suggestive of steatosis possible transaminitiis secondary to rhabdomyolysis appreicate GI consult hepatitis seroliogies pending [facility] Code(s): R94.5 - ABNORMAL RESULTS OF LIVER FUNCTION STUDIES (7) Hypoglycemia Assessment/Plan: ivf with detrose Code(s): E16.2 - HYPOGLYCEMIA, UNSPECIFIED
[2017-12-27] MEDS: D5-1/2NS+20 MEQ KCL - 20 MEQ/1,000 ML INFUS.BAG IV SCH (13:41)
[2017-12-27] MEDS: DEXTROSE 5%-0.45% SALINE 1,000 ML IV SCH (13:42)
--- NOTE | 2017-12-27 14:57 | PN ---
Progress Note, Physician History of Present Illness: Pt seen and examined at bedside. She is awake and alert. She denies shortness of breath however does require oxygen. - Current Medication List Current Medications: Active Medications Aspirin (Asa -) 81 mg PO DAILY [facility] Last Admin: 12/27/17 09:32 Dose: 81 mg Docusate Sodium (Colace -) 100 mg PO HS [facility] Last Admin: 12/26/17 21:25 Dose: 100 mg Heparin Sodium (Porcine) (Heparin -) 5,000 unit SQ TID [facility] Last Admin: 12/27/17 13:39 Dose: 5,000 unit Hydralazine HCl (Apresoline -) 25 mg PO TID [facility] Last Admin: 12/27/17 13:42 Dose: 25 mg Dextrose/Sodium Chloride (D5-1/2ns -) 1,000 mls @ 100 mls/hr IV ASDIR [facility] Last Admin: 12/27/17 13:42 Dose: 100 mls/hr Memantine (Namenda -) 5 mg PO DAILY [facility] Last Admin: 12/27/17 09:32 Dose: 5 mg - Objective Vital Signs: Vital Signs Temperature 98.4 F 12/27/17 14:00 Pulse Rate 88 12/27/17 14:00 Respiratory Rate 20 12/27/17 14:00 Blood Pressure 140/71 12/27/17 14:00 O2 Sat by Pulse Oximetry (%) 97 12/27/17 09:00 Constitutional: Yes: Calm Eyes: Yes: Conjunctiva Clear HENT: Yes: Atraumatic Neck: Yes: Supple Cardiovascular: Yes: S1, S2 Respiratory: Yes: On Nasal O2 Gastrointestinal: Yes: Soft Genitourinary: Yes: Incontinence Musculoskeletal: Yes: Muscle Weakness Edema: Yes Edema: LLE: 2+, RLE: 2+ Labs: CBC, BMP 12/26/17 05:30 12/27/17 05:30 INR, PTT INR 0.97 (0.82-1.09) 12/23/17 17:33 Problem List - Problems (1) Abnormal LFTs Code(s): R94.5 - ABNORMAL RESULTS OF LIVER FUNCTION STUDIES (2) Rhabdomyolysis Code(s): M62.82 - RHABDOMYOLYSIS Qualifiers: Rhabdomyolysis type: traumatic Encounter type: subsequent encounter Qualified Code(s): T79.6XXD - Traumatic ischemia of muscle, subsequent encounter Assessment/Plan Current Medications Generic Name Dose Route Start Last Admin Trade Name Dionne PRN Reason Stop Dose Admin Aspirin 81 mg 12/25/17 10:00 12/27/17 09:32 Asa - PO 81 mg DAILY [facility] Administration Docusate Sodium 100 mg 12/24/17 22:00 12/26/17 21:25 Colace - PO 100 mg HS [facility] Administration Heparin Sodium (Porcine) 5,000 unit 12/24/17 06:00 12/27/17 13:39 Heparin - SQ 5,000 unit TID [facility] Administration Hydralazine HCl 25 mg 12/24/17 06:00 12/27/17 13:42 Apresoline - PO 25 mg TID [facility] Administration Dextrose/Sodium Chloride 1,000 mls @ 100 mls/hr 12/27/17 13:15 12/27/17 13:42 D5-1/2ns - IV 100 mls/hr ASDIR [facility] Administration Memantine 5 mg 12/24/17 10:00 12/27/17 09:32 Namenda - PO 5 mg DAILY [facility] Administration Laboratory Tests 12/27/17 05:30 Creatinine 1.4 H Creatine Kinase 56650 H Albumin 0.9 L Impression 1. Rhabdo 2. transaminitis 3. HTN 4. dementia 5. malnutrition Plan - cpk is starting to improve - will give a dose of lasix as she is showing signs of overload - repeat labs in am - cont to monitor cpk level - will follow Dr Piña
[2017-12-27] MEDS ORDERED: FUROSEMIDE 40 MG TABLET (FP) PO ONE ×2 (15:30→17:45)
[2017-12-27] MEDS: DOCUSATE SODIUM 100 MG CAPSULE (FP) PO SCH (21:00)
[2017-12-28 00:08] LABS: HBSAG SCREEN Negative (Negative); HEP A AB, IGM Negative (Negative); HEP B CORE AB, TOT Positive (Negative)
[2017-12-28 06:26] LABS: BASO % 0.7 % (0-2.0); EOS % 1.7 % (0-4.5); HEMATOCRIT 28.9 % (32.4-45.2); HEMOGLOBIN 9.7 GM/dL (10.7-15.3); MCH 27.9 pg (25.7-33.7); MCHC 33.4 g/dl (32.0-36.0); MEAN CELL VOLUME 83.4 fl (80-96); MEAN PLT VOLUME 9.2 fl (7.5-11.1); NEUT % 81.6 % (42.8-82.8); PLATELET COUNT 181 K/MM3 (134-434); RBC 3.47 M/mm3 (3.60-5.2); RDW 21.1 % (11.6-15.6); WHITE BLOOD COUNT 7.2 K/mm3 (4.0-10.0)
[2017-12-28] MEDS: hydrALAZINE HCL 25 MG TABLET (FP) PO SCH ×3 (06:56→21:46)
[2017-12-28] MEDS: HEPARIN NA (PORCINE) 5,000 UNITS/ML 1ML VIAL SQ SCH ×3 (06:56→21:46)
[2017-12-28 07:18] LABS: CALCIUM 7.3 mg/dL (8.5-10.1); CHLORIDE 111 mmol/L (98-107); POTASSIUM 4.6 mmol/L (3.5-5.1); SODIUM 141 mmol/L (136-145)
[2017-12-28 07:24] LABS: ALK PHOS 103 U/L (45-117); ANION GAP 4 (8-16); BILIRUBIN,TOTAL 0.2 mg/dL (0.2-1.0); BLOOD UREA NITROGEN 35 mg/dL (7-18); CO2 26 mmol/L (21-32); CREATININE 1.1 mg/dL (0.55-1.02); GLUCOSE,RANDOM 87 mg/dL (74-106)
[2017-12-28 08:04] LABS: ALBUMIN 0.8 g/dl (3.4-5.0); SGOT/AST 592 U/L (15-37); SGPT/ALT 436 U/L (12-78)
--- NOTE | 2017-12-28 09:58 | PN ---
Progress Note, Physician Chief Complaint: Coverage for Drs. Esparza/Lyssa Events noted. Complains of back pain History of Present Illness: Patient was seen and examined. Awake and alert. Chart was reviewed Denies chest pain, SOB or palpitations Complains of pain in the extremity and back with rhabdo - Current Medication List Current Medications: Active Medications Aspirin (Asa -) 81 mg PO DAILY [facility] Last Admin: 12/27/17 09:32 Dose: 81 mg Docusate Sodium (Colace -) 100 mg PO HS [facility] Last Admin: 12/27/17 21:00 Dose: 100 mg Heparin Sodium (Porcine) (Heparin -) 5,000 unit SQ TID [facility] Last Admin: 12/28/17 06:56 Dose: 5,000 unit Hydralazine HCl (Apresoline -) 25 mg PO TID [facility] Last Admin: 12/28/17 06:56 Dose: 25 mg Dextrose/Sodium Chloride (D5-1/2ns -) 1,000 mls @ 100 mls/hr IV ASDIR [facility] Last Admin: 12/27/17 13:42 Dose: 100 mls/hr Memantine (Namenda -) 5 mg PO DAILY [facility] Last Admin: 12/27/17 09:32 Dose: 5 mg - Objective Vital Signs: Vital Signs Temperature 98.5 F 12/28/17 02:00 Pulse Rate 84 12/28/17 05:48 Respiratory Rate 20 12/28/17 05:48 Blood Pressure 139/65 12/28/17 05:48 O2 Sat by Pulse Oximetry (%) 97 12/27/17 21:00 Eyes: Yes: Conjunctiva Clear, PERRL HENT: Yes: Atraumatic Neck: Yes: Supple Cardiovascular: Yes: Regular Rate and Rhythm, S1, S2 Respiratory: Yes: CTA Bilaterally Gastrointestinal: Yes: Normal Bowel Sounds, Soft. No: Tenderness Edema: No Additional Findings/Remarks: - Review of Systems Constitutional: denies: Chills, Fever Cardiovascular: denies Chest Pain, Shortness of Breath. denies: Palpitations Respiratory: denies SOB, SOB on Exertion. denies: Cough, Hemoptysis, Orthopnea , PND Gastrointestinal: denies: Abdominal Pain, Constipation, Diarrhea, Melena, Nausea , Rectal Bleeding, Vomiting Musculoskeletal: (+) Joint Pain. (+) Back Pain Neurological: denies Unsteady Gait, Weakness. denies: Dizziness, Headache, Seizure, Syncope Labs: CBC, BMP 12/28/17 05:30 12/28/17 05:30 Problem List - Problems (1) Abnormal LFTs Code(s): R94.5 - ABNORMAL RESULTS OF LIVER FUNCTION STUDIES (2) [id number] kidney injury Code(s): N17.9 - ACUTE KIDNEY FAILURE, UNSPECIFIED; N18.9 - CHRONIC KIDNEY DISEASE, UNSPECIFIED Qualifiers: Chronic kidney disease stage: stage 2 (mild) (3) Dementia Code(s): F03.90 - UNSPECIFIED DEMENTIA WITHOUT BEHAVIORAL DISTURBANCE Qualifiers: Dementia type: unspecified type Dementia behavioral disturbance: without behavioral disturbance Qualified Code(s): F03.90 - Unspecified dementia without behavioral disturbance (4) Rhabdomyolysis Code(s): M62.82 - RHABDOMYOLYSIS Qualifiers: Rhabdomyolysis type: traumatic Encounter type: subsequent encounter Qualified Code(s): T79.6XXD - Traumatic ischemia of muscle, subsequent encounter (5) Status post fall Code(s): Z91.81 - HISTORY OF FALLING (6) Troponin I above reference range Code(s): R74.8 - ABNORMAL LEVELS OF OTHER SERUM ENZYMES Assessment/Plan 1. Post mechanical fall with elevated CK and LFT due to rhabdo 2. CKD 3. Elevated troponin due to above and demand ischemia 4. HTN 5. Hypercholesterolemia 6. Organic brain/dementia PLAN: 1. Fluid resuscitation and monitor CK and LFT. US of abdomen noted 2. Continue Hydralazine as tolerated 3. Continue ASA 4. Trend troponin 5. Previously was on Lisinopril and Amlodipine but now stopped. Resume Statin once LFT and CK normalizes 6. Continue DVT prophylaxis Further plans are to follow. Drs. Esparza/Lyssa to resume care Antwan Grijalva MD
[2017-12-28] MEDS: MEMANTINE HCL 5 MG TABLET (UD) PO SCH (10:26)
[2017-12-28] MEDS: ASPIRIN 81 MG CHEWABLE TABLETS PO SCH (10:27)
[2017-12-28 13:25] LABS: ANISOCYTOSIS 1+; MACROCYTOSIS 0; PLATELET ESTIMATE NORMAL
[2017-12-28] MEDS: DEXTROSE 5%-0.45% SALINE 1,000 ML IV SCH (13:25)
--- NOTE | 2017-12-28 15:58 | PN ---
Progress Note, Physician History of Present Illness: Pt seen and examined at bedside. She is more awake and interactive today. She feels that her lower ext edema is a little better. - Current Medication List Current Medications: Active Medications Aspirin (Asa -) 81 mg PO DAILY [facility] Last Admin: 12/28/17 10:27 Dose: 81 mg Docusate Sodium (Colace -) 100 mg PO HS [facility] Last Admin: 12/27/17 21:00 Dose: 100 mg Heparin Sodium (Porcine) (Heparin -) 5,000 unit SQ TID [facility] Last Admin: 12/28/17 13:25 Dose: 5,000 unit Hydralazine HCl (Apresoline -) 25 mg PO TID [facility] Last Admin: 12/28/17 13:25 Dose: 25 mg Dextrose/Sodium Chloride (D5-1/2ns -) 1,000 mls @ 100 mls/hr IV ASDIR [facility] Last Admin: 12/28/17 13:25 Dose: 100 mls/hr Memantine (Namenda -) 5 mg PO DAILY [facility] Last Admin: 12/28/17 10:26 Dose: 5 mg - Objective Vital Signs: Vital Signs Temperature 97.8 F 12/28/17 14:00 Pulse Rate 85 12/28/17 14:00 Respiratory Rate 20 12/28/17 14:00 Blood Pressure 149/75 12/28/17 14:00 O2 Sat by Pulse Oximetry (%) 96 12/28/17 09:00 Constitutional: Yes: Calm HENT: Yes: Atraumatic Cardiovascular: Yes: S1, S2 Respiratory: Yes: CTA Bilaterally, On Nasal O2 Gastrointestinal: Yes: Normal Bowel Sounds, Soft Genitourinary: Yes: Henriquez Present Musculoskeletal: Yes: Muscle Weakness Edema: Yes Edema: LLE: 1+, RLE: 1+ Neurological: Yes: Oriented Psychiatric: Yes: Oriented Labs: CBC, BMP 12/28/17 05:30 12/28/17 05:30 INR, PTT INR 0.97 (0.82-1.09) 12/23/17 17:33 Problem List - Problems (1) Abnormal LFTs Code(s): R94.5 - ABNORMAL RESULTS OF LIVER FUNCTION STUDIES (2) Rhabdomyolysis Code(s): M62.82 - RHABDOMYOLYSIS Qualifiers: Rhabdomyolysis type: traumatic Encounter type: subsequent encounter Qualified Code(s): T79.6XXD - Traumatic ischemia of muscle, subsequent encounter Assessment/Plan Current Medications Generic Name Dose Route Start Last Admin Trade Name Dionne PRN Reason Stop Dose Admin Aspirin 81 mg 12/25/17 10:00 12/28/17 10:27 Asa - PO 81 mg DAILY [facility] Administration Docusate Sodium 100 mg 12/24/17 22:00 12/27/17 21:00 Colace - PO 100 mg HS [facility] Administration Heparin Sodium (Porcine) 5,000 unit 12/24/17 06:00 12/28/17 13:25 Heparin - SQ 5,000 unit TID [facility] Administration Hydralazine HCl 25 mg 12/24/17 06:00 12/28/17 13:25 Apresoline - PO 25 mg TID [facility] Administration Dextrose/Sodium Chloride 1,000 mls @ 100 mls/hr 12/27/17 13:15 12/28/17 13:25 D5-1/2ns - IV 100 mls/hr ASDIR [facility] Administration Memantine 5 mg 12/24/17 10:00 12/28/17 10:26 Namenda - PO 5 mg DAILY [facility] Administration Impression 1. Rhabdo 2. transaminitis 3. HTN 4. dementia 5. malnutrition Plan - cpk is improving - renal function improving - cont fluids - repeat labs in am - monitor output - will follow Dr Piña
--- NOTE | 2017-12-28 16:34 | PN ---
Progress Note, Physician Chief Complaint: IN BED AWAKE NO APPARENT DISTRESS - Current Medication List Current Medications: Active Medications Aspirin (Asa -) 81 mg PO DAILY [facility] Last Admin: 12/28/17 10:27 Dose: 81 mg Docusate Sodium (Colace -) 100 mg PO HS [facility] Last Admin: 12/27/17 21:00 Dose: 100 mg Heparin Sodium (Porcine) (Heparin -) 5,000 unit SQ TID [facility] Last Admin: 12/28/17 13:25 Dose: 5,000 unit Hydralazine HCl (Apresoline -) 25 mg PO TID [facility] Last Admin: 12/28/17 13:25 Dose: 25 mg Dextrose/Sodium Chloride (D5-1/2ns -) 1,000 mls @ 100 mls/hr IV ASDIR [facility] Last Admin: 12/28/17 13:25 Dose: 100 mls/hr Memantine (Namenda -) 5 mg PO DAILY [facility] Last Admin: 12/28/17 10:26 Dose: 5 mg - Objective Vital Signs: Vital Signs Temperature 97.8 F 12/28/17 14:00 Pulse Rate 85 12/28/17 14:00 Respiratory Rate 20 12/28/17 14:00 Blood Pressure 149/75 12/28/17 14:00 O2 Sat by Pulse Oximetry (%) 96 12/28/17 09:00 Constitutional: Yes: Mild Distress Eyes: Yes: WNL HENT: Yes: WNL Neck: Yes: WNL Cardiovascular: Yes: WNL Respiratory: Yes: WNL Gastrointestinal: Yes: Ascites, Distention Genitourinary: Yes: Incontinence Musculoskeletal: Yes: Muscle Weakness Extremities: Yes: Deformity Edema: No Peripheral Pulses WNL: Yes Integumentary: Yes: WNL Wound/Incision: Yes: Clean/Dry Neurological: Yes: Confusion, Pre-Existing Deficit ...Motor Strength: LLE, RLE Psychiatric: Yes: Other Labs: CBC, BMP 12/28/17 05:30 12/28/17 05:30 INR, PTT INR 0.97 (0.82-1.09) 12/23/17 17:33 Problem List - Problems (1) Abnormal LFTs Code(s): R94.5 - ABNORMAL RESULTS OF LIVER FUNCTION STUDIES (2) [id number] kidney injury Code(s): N17.9 - ACUTE KIDNEY FAILURE, UNSPECIFIED; N18.9 - CHRONIC KIDNEY DISEASE, UNSPECIFIED Qualifiers: Chronic kidney disease stage: stage 2 (mild) (3) Dementia Code(s): F03.90 - UNSPECIFIED DEMENTIA WITHOUT BEHAVIORAL DISTURBANCE Qualifiers: Dementia type: unspecified type Dementia behavioral disturbance: without behavioral disturbance Qualified Code(s): F03.90 - Unspecified dementia without behavioral disturbance (4) Rhabdomyolysis Code(s): M62.82 - RHABDOMYOLYSIS Qualifiers: Rhabdomyolysis type: traumatic Encounter type: subsequent encounter Qualified Code(s): T79.6XXD - Traumatic ischemia of muscle, subsequent encounter (5) Status post fall Code(s): Z91.81 - HISTORY OF FALLING (6) Troponin I above reference range Code(s): R74.8 - ABNORMAL LEVELS OF OTHER SERUM ENZYMES Assessment/Plan RHABDO/TRANSAMINITIS ON IVF MONITOR LFT/CPK TRENDING DOWN PT EVAL DC PLANNING TOMORROW IF CLEARED BY GI/NEPHRO
[2017-12-28] MEDS: DOCUSATE SODIUM 100 MG CAPSULE (FP) PO SCH (21:46)
--- NOTE | 2017-12-29 00:07 | PN ---
Progress Note (short form) - Note Progress Note: improving clinically blood sugars stable no further hypoglycemi Current Active Problems Abnormal LFTs (Acute) [id number] kidney injury (Acute) Dementia (Acute) Hypoglycemia (Acute) Hypokalemia (Acute) Rhabdomyolysis (Acute) Status post fall (Acute) Troponin I above reference range (Acute) Abnormal Lab Results 12/26/17 12/28/17 12/28/17 05:30 05:30 05:30 RBC Hgb Hct RDW Monocytes % (Manual) Chloride 111 H Anion Gap 4 L BUN 35 H Creatinine 1.1 H Hemoglobin A1c % 4.6 L Calcium 7.3 L AST 592 H ALT 436 H Creatine Kinase CK-MB (CK-2) Total Protein 4.0 L Albumin 0.8 L Hepatitis A Ab Total Positive H Hep B Core Total Ab Positive H 12/28/17 12/28/17 05:30 05:30 RBC 3.47 L Hgb 9.7 L Hct 28.9 L RDW 21.1 H Monocytes % (Manual) 1 L Chloride Anion Gap BUN Creatinine Hemoglobin A1c % Calcium AST ALT Creatine Kinase 8439 H CK-MB (CK-2) 134.38 H Total Protein Albumin Hepatitis A Ab Total Hep B Core Total Ab Laboratory Tests 12/28/17 12/28/17 05:30 05:30 BUN 35 H Creatinine 1.1 H Hemoglobin A1c % 4.6 L plan: follow liver enzymes elevation liver enzymes likely source hypoglycemia monitor for further hypoglycemia await proinsulin level Problem List - Problems (1) Abnormal LFTs Code(s): R94.5 - ABNORMAL RESULTS OF LIVER FUNCTION STUDIES (2) Hypoglycemia Code(s): E16.2 - HYPOGLYCEMIA, UNSPECIFIED (3) Hypokalemia Code(s): E87.6 - HYPOKALEMIA (4) Rhabdomyolysis Code(s): M62.82 - RHABDOMYOLYSIS Qualifiers: Rhabdomyolysis type: traumatic Encounter type: subsequent encounter Qualified Code(s): T79.6XXD - Traumatic ischemia of muscle, subsequent encounter (5) Troponin I above reference range Code(s): R74.8 - ABNORMAL LEVELS OF OTHER SERUM ENZYMES
[2017-12-29] MEDS: HEPARIN NA (PORCINE) 5,000 UNITS/ML 1ML VIAL SQ SCH ×2 (06:21→13:50)
[2017-12-29] MEDS: hydrALAZINE HCL 25 MG TABLET (FP) PO SCH ×2 (06:21→13:50)
[2017-12-29 06:37] VITALS: PULSE 83
[2017-12-29 07:42] LABS: HEMATOCRIT 30.6 % (32.4-45.2); HEMOGLOBIN 10.2 GM/dL (10.7-15.3); MCH 27.8 pg (25.7-33.7); MCHC 33.1 g/dl (32.0-36.0); MEAN CELL VOLUME 83.8 fl (80-96); MEAN PLT VOLUME 9.4 fl (7.5-11.1); PLATELET COUNT 199 K/MM3 (134-434); RBC 3.66 M/mm3 (3.60-5.2); RDW 21.4 % (11.6-15.6); WHITE BLOOD COUNT 6.9 K/mm3 (4.0-10.0)
[2017-12-29 08:05] LABS: CHLORIDE 107 mmol/L (98-107); POTASSIUM 4.2 mmol/L (3.5-5.1); SODIUM 139 mmol/L (136-145)
[2017-12-29 08:20] LABS: ALBUMIN 0.8 g/dl (3.4-5.0); ALK PHOS 112 U/L (45-117); ANION GAP 6 (8-16); BILIRUBIN,TOTAL 0.1 mg/dL (0.2-1.0); BLOOD UREA NITROGEN 31 mg/dL (7-18); CALCIUM 7.6 mg/dL (8.5-10.1); CO2 26 mmol/L (21-32); CREATININE 0.9 mg/dL (0.55-1.02); GLUCOSE,RANDOM 89 mg/dL (74-106); SGOT/AST 528 U/L (15-37); SGPT/ALT 457 U/L (12-78); TOT PROT 4.3 g/dl (6.4-8.2)
[2017-12-29] MEDS: MEMANTINE HCL 5 MG TABLET (UD) PO SCH (09:56)
[2017-12-29] MEDS: ASPIRIN 81 MG CHEWABLE TABLETS PO SCH (09:56)
[2017-12-29 10:25] VITALS: BP 150/79; TEMP 98
--- NOTE | 2017-12-29 11:20 | DS ---
Physical Examination Vital Signs: Vital Signs Temperature 98 F 12/29/17 10:00 Pulse Rate 83 12/29/17 10:00 Respiratory Rate 18 12/29/17 10:00 Blood Pressure 150/79 12/29/17 10:00 O2 Sat by Pulse Oximetry (%) 97 12/28/17 21:00 Constitutional: Yes: No Distress Eyes: Yes: WNL HENT: Yes: WNL Neck: Yes: WNL Cardiovascular: Yes: WNL Respiratory: Yes: WNL Gastrointestinal: Yes: Ascites, Tenderness Renal/: Yes: WNL Musculoskeletal: Yes: Muscle Pain, Muscle Weakness Extremities: Yes: WNL Edema: No Peripheral Pulses WNL: Yes Integumentary: Yes: WNL Wound/Incision: Yes: Clean/Dry Neurological: Yes: Pre-Existing Deficit, Unsteady Gait ...Motor Strength: LLE, RLE Psychiatric: Yes: Other Labs: CBC, BMP 12/29/17 06:00 12/29/17 06:00 Discharge Summary Reason For Visit: ELEVATED TROPONIN LEVEL Current Active Problems Abnormal LFTs (Acute) Nbctf-my-adyymcv kidney injury (Acute) Dementia (Acute) Hypoglycemia (Acute) Hypokalemia (Acute) Rhabdomyolysis (Acute) Status post fall (Acute) Troponin I above reference range (Acute) Procedures: Principal: telemetry eval/cardiac workup Hospital Course: admitted for arf/rhabdo levels improving, can dc and monitor levels as outpatient on IV fluids Condition: Stable - Instructions Diet, Activity, Other Instructions: Low salt diet continue IV fluids for at least 2 mores days check cpk/ck levels 2xweek until rhabo resolved Renal consult in 2-3 days Referrals: Dhruv Tam [Primary Care Provider] - Disposition: INTERMEDIATE FACILITY - Home Medications Comprehensive Discharge Medication List: Ambulatory Orders Amlodipine Besylate [Norvasc -] 5 mg PO DAILY 12/23/17 Aspirin 81 mg PO DAILY 12/23/17 Docusate Sodium [Colace] 100 mg PO HS 12/23/17 Lisinopril [Prinivil] 20 mg PO BID 12/23/17 Melatonin/Pyridoxine HCl (B6) [Melatonin 3 mg Tablet] 3 each PO HS 12/23/17 Memantine HCl [Namenda -] 5 mg PO DAILY 12/23/17 hydrALAZINE HCL [Apresoline -] 25 mg PO TID 12/23/17 Aspirin [ASA -] 81 mg PO DAILY tab.chew 12/29/17 Dextrose 5%-0.45% Saline [D5-1/2Ns -] 100 ml IV ASDIR 2 Days infus.bag Heparin - 5,000 unit SQ TID vial 12/29/17
[2017-12-29] MEDS ORDERED: FUROSEMIDE 20 MG TABLET (FP) PO ONE (12:34)
--- NOTE | 2017-12-29 12:34 | PN ---
Progress Note, Physician History of Present Illness: Pt seen and examined at bedside. She is awake and alert. She is asking to go back to rehab. - Current Medication List Current Medications: Active Medications Aspirin (Asa -) 81 mg PO DAILY [facility] Last Admin: 12/29/17 09:56 Dose: 81 mg Docusate Sodium (Colace -) 100 mg PO HS [facility] Last Admin: 12/28/17 21:46 Dose: 100 mg Heparin Sodium (Porcine) (Heparin -) 5,000 unit SQ TID [facility] Last Admin: 12/29/17 06:21 Dose: 5,000 unit Hydralazine HCl (Apresoline -) 25 mg PO TID [facility] Last Admin: 12/29/17 06:21 Dose: 25 mg Dextrose/Sodium Chloride (D5-1/2ns -) 1,000 mls @ 100 mls/hr IV ASDIR [facility] Last Admin: 12/28/17 13:25 Dose: 100 mls/hr Memantine (Namenda -) 5 mg PO DAILY [facility] Last Admin: 12/29/17 09:56 Dose: 5 mg - Objective Vital Signs: Vital Signs Temperature 98 F 12/29/17 10:00 Pulse Rate 83 12/29/17 10:00 Respiratory Rate 18 12/29/17 10:00 Blood Pressure 150/79 12/29/17 10:00 O2 Sat by Pulse Oximetry (%) 98 12/29/17 09:00 Constitutional: Yes: Calm HENT: Yes: Atraumatic Cardiovascular: Yes: S1, S2 Respiratory: Yes: On Nasal O2 Gastrointestinal: Yes: Soft Genitourinary: Yes: Henriquez Present Musculoskeletal: Yes: Muscle Weakness Edema: Yes Edema: LLE: 1+, RLE: 1+ Neurological: Yes: Oriented Psychiatric: Yes: Oriented Labs: CBC, BMP 12/29/17 06:00 12/29/17 06:00 INR, PTT INR 0.97 (0.82-1.09) 12/23/17 17:33 Problem List - Problems (1) Abnormal LFTs Code(s): R94.5 - ABNORMAL RESULTS OF LIVER FUNCTION STUDIES (2) Rhabdomyolysis Code(s): M62.82 - RHABDOMYOLYSIS Qualifiers: Rhabdomyolysis type: traumatic Encounter type: subsequent encounter Qualified Code(s): T79.6XXD - Traumatic ischemia of muscle, subsequent encounter Assessment/Plan Current Medications Generic Name Dose Route Start Last Admin Trade Name Dionne PRN Reason Stop Dose Admin Aspirin 81 mg 12/25/17 10:00 12/29/17 09:56 Asa - PO 81 mg DAILY [facility] Administration Docusate Sodium 100 mg 12/24/17 22:00 12/28/17 21:46 Colace - PO 100 mg HS [facility] Administration Heparin Sodium (Porcine) 5,000 unit 12/24/17 06:00 12/29/17 06:21 Heparin - SQ 5,000 unit TID [facility] Administration Hydralazine HCl 25 mg 12/24/17 06:00 12/29/17 06:21 Apresoline - PO 25 mg TID [facility] Administration Dextrose/Sodium Chloride 1,000 mls @ 100 mls/hr 12/27/17 13:15 12/28/17 13:25 D5-1/2ns - IV 100 mls/hr ASDIR [facility] Administration Memantine 5 mg 12/24/17 10:00 12/29/17 09:56 Namenda - PO 5 mg DAILY [facility] Administration Impression 1. Rhabdo 2. transaminitis 3. HTN 4. dementia 5. malnutrition Plan - continue to monitor CPK - cont to monitor renal function - will give a dose of lasix as she has edema - cont with fluids, change from d51/2 to 1/2ns - monitor volume status - discussed with medical team, if discharged then cpk and volume status must be monitored. Cont with fluids. - monitor output - will follow Dr Piña
[2017-12-29] MEDS ORDERED: SODIUM CHLORIDE 0.45% 1,000 ML IV SCH (12:45)
--- NOTE | 2017-12-29 13:16 | PN ---
Progress Note (short form) - Note Progress Note: S: Active Medications Aspirin (Asa -) 81 mg PO DAILY [facility] Last Admin: 12/29/17 09:56 Dose: 81 mg Docusate Sodium (Colace -) 100 mg PO HS [facility] Last Admin: 12/28/17 21:46 Dose: 100 mg Furosemide (Lasix -) 20 mg PO ONCE ONE Stop: 12/29/17 12:35 Heparin Sodium (Porcine) (Heparin -) 5,000 unit SQ TID [facility] Last Admin: 12/29/17 06:21 Dose: 5,000 unit Hydralazine HCl (Apresoline -) 25 mg PO TID [facility] Last Admin: 12/29/17 06:21 Dose: 25 mg Sodium Chloride (1/2 Normal Saline) 1,000 mls @ 100 mls/hr IV ASDIR [facility] Memantine (Namenda -) 5 mg PO DAILY [facility] Last Admin: 12/29/17 09:56 Dose: 5 mg O: (Age) year old male/female was in no acute distress. No pallor, cyanosis, clubbing, or jaundice. Last Vital Signs Temp Pulse Resp BP Pulse Ox 98 F 83 18 150/79 98 12/29/17 10:00 12/29/17 10:00 12/29/17 10:00 12/29/17 10:00 12/29/17 09:00 NECK: Supple, no JVD, negative HJR, carotids were equal and upstrokes were normal, no thyromegaly appreciated. HEART: PMI was in the 5th intercostal space, no heaves or thrills, S1 and S2 were normal. No murmurs or gallops were appreciated. LUNGS: Clear on auscultation bilaterally. ABDOMEN: Soft, nontender, no hepatosplenomegaly appreciated, and no palpable masses were felt. EXTREMITIES: No calf tenderness or dependent edema. Pulses are normal. [ CBC, BMP 12/29/17 06:00 12/29/17 06:00 Laboratory Results - last 24 hr 12/28/17 12/28/17 12/29/17 05:30 22:47 06:00 WBC RBC Hgb Hct MCV MCH MCHC RDW Plt Count MPV Neutrophils % (Manual) 81.8 Band Neutrophils % 0.0 Lymphocytes % (Manual) 13.2 Monocytes % (Manual) 1 L Eosinophils % (Manual) 1.0 Basophils % (Manual) 2.0 Myelocytes % (Man) 0 Promyelocytes % (Man) 0 Blast Cells % (Manual) 0 Metamyelocytes 0 Hypochromia 0 Platelet Estimate Normal Polychromasia 1+ Poikilocytosis 1+ Anisocytosis 1+ Microcytosis 1+ Macrocytosis 0 Khloe Cells 1+ Sodium 139 Potassium 4.2 Chloride 107 Carbon Dioxide 26 Anion Gap 6 L BUN 31 H Creatinine 0.9 Creat Clearance w eGFR > 60 POC Glucometer 121 Random Glucose 89 Calcium 7.6 L Total Bilirubin 0.1 L AST 528 H ALT 457 H Alkaline Phosphatase 112 Creatine Kinase 6576 H Creatine Kinase Index 2.1 CK-MB (CK-2) 148.42 H Total Protein 4.3 L Albumin 0.8 L 12/29/17 12/29/17 12/29/17 06:00 06:00 06:21 WBC 6.9 RBC 3.66 Hgb 10.2 L Hct 30.6 L MCV 83.8 MCH 27.8 MCHC 33.1 RDW 21.4 H Plt Count 199 MPV 9.4 Neutrophils % (Manual) Band Neutrophils % Lymphocytes % (Manual) Monocytes % (Manual) Eosinophils % (Manual) Basophils % (Manual) Myelocytes % (Man) Promyelocytes % (Man) Blast Cells % (Manual) Metamyelocytes Hypochromia Platelet Estimate Polychromasia Poikilocytosis Anisocytosis Microcytosis Macrocytosis [place] Cells Sodium Potassium Chloride Carbon Dioxide Anion Gap BUN Creatinine Creat Clearance w eGFR POC Glucometer 94 Random Glucose Calcium Total Bilirubin AST ALT Alkaline Phosphatase Creatine Kinase Cancelled Creatine Kinase Index CK-MB (CK-2) Total Protein Albumin Impression: Recommendations: Prognosis: Documentation prepared by Saima Quezada, acting as a medical affairs leader for Ron Carvajal MD.
== END 2017-12-29 13:58 | DRG 683 ==
LOC: JER 15:46 → JERBED 21:57 → UNDOADMIN 23:08 → J4W 12-24 17:45
PROVIDERS: ADMIT Internal Medicine; ATTEND Family Medicine
DX: N17.9 Acute kidney failure, unspecified (principal); M62.82 Rhabdomyolysis; I24.8 Other forms of acute ischemic heart disease; E87.2 Acidosis; E46 Unspecified protein-calorie malnutrition; E78.5 Hyperlipidemia, unspecified; I12.9 Hypertensive chronic kidney disease with stage 1 through stage 4 chronic kidney disease, or unspecified chronic kidney disease; N18.2 Chronic kidney disease, stage 2 (mild); E88.09 Other disorders of plasma-protein metabolism, not elsewhere classified; K64.9 Unspecified hemorrhoids; G30.9 Alzheimer's disease, unspecified; R26.81 Unsteadiness on feet; F02.80 Dementia in other diseases classified elsewhere, unspecified severity, without behavioral disturbance, psychotic disturbance, mood disturbance, and anxiety; R74.8 Abnormal levels of other serum enzymes; E16.2 Hypoglycemia, unspecified; E87.6 Hypokalemia; Z91.81 History of falling; Z68.24 Body mass index [BMI] 24.0-24.9, adult
CPT/HCPCS: 36415; 70450-TC; 71045-TC-FY; 76705-TC; 80048; 80053; 80076; 81003; 81015; 82550; 82553; 82962; 83036; 83525; 83605; 83735; 84100; 84484; 85025; 85027; 85610; 85730; 86038; 86704; 86706; 86708; 87086; 87340; 93005; 93010; 93306-TC; 93880-TC; 97116-GP; 97161-GP; 99285-25; J1644; J7030